=== PATIENT | male | born 1955 | race Caucasian/White ===

== ENCOUNTER → 2016-10-31 | Outpatient (CLI) | payer BC ==
--- NOTE | 2016-10-31 22:45 | PN ---
This is a 60-year-old male patient coming in for old follow-up regarding his obstructive sleep apnea. This is his yearly check. The patient is doing well. He has no specific complaints. He is using his CPAP every night without any interruption. He has his CPAP unit which is set at a pressure of 11 cm of water with a C-Flex of 3 and he is using a full face Simplus mask, medium size. His weight has been fluctuating and he his weight is up to 273 pounds. He has gained approximately 20 pounds over the past 6 to 9 months. He is averaging 7 hours and 30 minutes on his CPAP use every night. No snoring on CPAP machine. He is waking up refreshed and alert during the day and he has no specific complaints for now. BP is 147/70, pulse 59, respirations 16, temperature 98.1, saturation 95% on room air, weight 273. BMI is 42 and Marion score is 6. GENERAL APPEARANCE: Calm, comfortable. HEENT: Short neck, crowding posterior pharynx. There is no goiter, neck masses. LUNGS: Clear to auscultation. HEART: Sounds are regular rate and rhythm. Normal S1, S2. No S3, no S4 no murmurs. ABDOMEN: Soft, nontender. No organomegaly. EXTREMITIES: No edema, clubbing. IMPRESSION: 1. Obstructive sleep apnea, currently on CPAP at a pressure with excellent clinical response and compliance. 2. Obesity with interval weight gain and body mass index is up to 42.1. 3. Hypertension. PLAN: 1. Encourage weight loss. 2. Continue CPAP therapy at the same level of pressure. 3. Patient is compliant. He is averaging more than 7 hours of CPAP use every night and he is waking up alert and refreshed during the day. 4. Implement good sleep hygiene measures. 5. We will continue to follow. 6. See me back in a year's time; earlier if needed.
== END | disposition home or self-care (01) ==
LOC: SLEEP 14:58
PROVIDERS: ATTEND Internal Medicine Critical Care Medicine
DX: G47.33 Obstructive sleep apnea (adult) (pediatric) (principal); E66.9 Obesity, unspecified; Z68.41 Body mass index [BMI] 40.0-44.9, adult

== ENCOUNTER → 2017-11-13 | Outpatient (CLI) | payer BC ==
--- NOTE | 2017-11-13 20:49 | PN ---
PROGRESS NOTE I am seeing this patient who is 61, and he is coming in for an annual check regarding his obstructive sleep apnea treatment. The patient with a pressure of 11 cm of water. He is doing well. He is benefitting from treatment. Garner score is down to 5. He is averaging around 7 hours and 23 minutes of CPAP use per night. The patient insisted updating his CPAP machine. The patient has an older generation REM Star [employer] unit. This machine is set at a pressure of 11 cm of water. His treatment has been successful and he wants to keep the same pressure setting. He was also using a Simplus full face mask. I introduced the AirFit F20 full face mask which he liked and favored. He has no other complaints otherwise for now. His body weight is at 270 which is 3 pounds less compared to his last evaluation approximately a year ago. REVIEW OF SYSTEMS: 12-point review of system was done. Positive findings are mentioned in history of present illness. His CPAP treatment has been crucial as the patient reports marked sleep improvement in sleep quality while on CPAP therapy. No reports snoring while on CPAP therapy. No reported heartburn or shortness of breath or any other chest pain or gasping for air at night. PHYSICAL EXAMINATION: BP is 137/69, pulse 68, respirations 16, temp 97.9. Saturation 95% on room air. Weight is 270, height is 5 feet 7 inches and BMI 42.2. GENERAL APPEARANCE: Calm and comfortable in no distress. Head is atraumatic, normocephalic. NECK: Supple. There is no JVD. No goiter or neck masses. Mallampati class IV. LUNGS: Clear to auscultation. HEART: Sounds are regular rate and rhythm. Normal S1, S2. No S3, S4. No murmurs. ABDOMEN: Soft, nontender. No organomegaly. EXTREMITIES: No edema. No cyanosis or clubbing. NEUROLOGIC: Alert and oriented x3. No focal neurological deficits. PSYCHIATRIC: Negative for anxiety or depression. IMPRESSION: 1. Obstructive sleep apnea. Successfully treated with a CPAP pressure of 11 cm of water. The patient wants to update his CPAP unit and mask. 2. Obesity, current weight is stable, BMI 42. 3. Hypertension. PLAN: 1. We will order a ResMed AutoSet APAP unit with minimal pressure of 7 and a maximum pressure of 15. 2. Will an AirFit F20 full face mask. 3. Send an order to [facility]. 4. See me back in 90 days for a compliancy check and further adjustments will be done accordingly. MMODL / IJN: [id number] /
== END | disposition home or self-care (01) ==
LOC: SLEEP 13:31
PROVIDERS: ATTEND Internal Medicine Critical Care Medicine
DX: G47.33 Obstructive sleep apnea (adult) (pediatric) (principal); E66.9 Obesity, unspecified; I10 Essential (primary) hypertension; Z99.89 Dependence on other enabling machines and devices; Z68.41 Body mass index [BMI] 40.0-44.9, adult

== ENCOUNTER → 2018-10-24 | Outpatient (CLI) | payer BC ==
--- NOTE | 2018-10-25 11:27 | ECHOF ---
Referral Reason:R06.09 Dyspnea with exertion MEASUREMENTS -------- HEIGHT: 167.6 cm WEIGHT: 129.3 kg BP: RVIDd: 2.9 cm (< 3.3) IVSd: 1.4 cm (0.6 - 1.1) LVIDd: 4.5 cm (3.9 - 5.3) LVPWd: 1.4 cm (0.6 - 1.1) IVSs: 1.8 cm LVIDs: 2.4 cm LVPWs: 1.7 cm LAESV Index (A-L): 31.59 ml/m Ao Diam: 3.0 cm (2.0 - 3.7) AV Cusp: 2.3 cm (1.5 - 2.6) LA Diam: 4.4 cm (2.7 - 3.8) EPSS: 0.5 cm MV E Darek: 0.57 m/s MV DecT: 307 ms MV A Darek: 0.77 m/s MV E/A Ratio: 0.74 RAP: 5.00 mmHg RVSP: 31.67 mmHg MV EF SLOPE: 100.42 mm/s (70 - 150) MV EXCURSION: 1.26 cm (> 18.000) FINDINGS -------- Sinus rhythm. This was a technically difficult study with suboptimal views. The left ventricular size is normal. There is moderate concentric left ventricular hypertrophy. O verall left ventricular systolic function is normal with, an EF between 60 - 65 %. The right ventricle is normal in size. The left atrium is mildly dilated. LA is midly dilated 29-33ml/m2. The right atrium is normal in size. 5 ml of Lumason was utilized for enhancement of images. Interatrial and interventricular septum intact. The aortic valve is trileaflet, and appears structurally normal. No aortic stenosis or regurgitation. There is trace mitral regurgitation. Mild tricuspid regurgitation present. Right ventricular systolic pressure is normal at < 35 mmHg. Trace/mild (physiologic) pulmonic regurgitation. The aortic root size is normal. IVC Not well visulized. There is no pericardial effusion. CONCLUSIONS -------- 1. Sinus rhythm. 2. This was a technically difficult study with suboptimal views. 3. The left ventricular size is normal. 4. There is moderate concentric left ventricular hypertrophy. 5. Overall left ventricular systolic function is normal with, an EF between 60 - 65 %. 6. The right ventricle is normal in size. 7. The left atrium is mildly dilated. 8. LA is midly dilated 29-33ml/m2. 9. The right atrium is normal in size. 10. 5 ml of Lumason was utilized for enhancement of images. 11. Interatrial and interventricular septum intact. 12. The aortic valve is trileaflet, and appears structurally normal. No aortic stenosis or regurgitat ion. 13. Mild tricuspid regurgitation present. 14. Right ventricular systolic pressure is normal at < 35 mmHg. 15. Trace/mild (physiologic) pulmonic regurgitation. 16. The aortic root size is normal. 17. IVC Not well visulized. 18. There is no pericardial effusion. KNOBBER: Valery Hernandez RDCS
--- NOTE | 2018-10-25 11:34 | P.STRESS ---
- Stress Test Note Stress Test Results/Findings: Exam Performed: stress test Exam Date: 10/24/18 Reason for Exam: DYSPNEA Height: 5 ft 6 in Weight: 127.006 kg Protocol: MARLINE Stage: 3 Duration of Exercise: 7:30 MINUTES Resting Heart Rate: 59 Resting Blood Pressure: 151/86 Maximum Achieved Heart Rate: 141 Maximum Achieved Blood Pressure: 210/63 85% PMHR: 134 100% PMHR: 158 METS: 9.1 Technologist Comment: Stress Test Results/Findings: Baseline heart rate 59 beats a minute Baseline blood pressure 151/86. His mercury Baseline twelve-lead ECG shows normal sinus rhythm normal cardiac intervals Patient exercised on a Marline protocol for 7 minutes 30 seconds achieving a peak heart rate of 141 beats a minute Hypertensive response to exercise No ECG evidence for ischemia occasional PVCs.
== END | disposition home or self-care (01) ==
LOC: RADNMMAIN 10:48
PROVIDERS: ATTEND Family Medicine
DX: I07.1 Rheumatic tricuspid insufficiency (principal); I37.1 Nonrheumatic pulmonary valve insufficiency; R06.09 Other forms of dyspnea
CPT/HCPCS: 93017; 93306; Q9950

== ENCOUNTER → 2019-05-20 | Outpatient (CLI) | payer BC ==
--- NOTE | 2019-05-20 14:44 | PN ---
PROGRESS NOTE Evelio is 63 coming in for an annual check. I totally updated his CPAP machine. However, the patient told me that it had been 5 years and the patient had to wait another year for him to get a new CPAP unit. During this time, the patient used his old degeneration respiratory unit which was set at a pressure of 11 cm of water and he was averaging around 7.5 hours. He was using a Simplus full-face mask, small size. He has no complaints, no snoring, unfortunately he has gained weight since he retired and he is up to 282 pounds. No snoring while using his CPAP unit, treatment has been successful and I do not see the need for repeating a sleep study. I am going to order a new CPAP unit for him. Otherwise, he has no new complaints. No major hypersomnia or sleepiness during the day. No tiredness or fatigue during the day. No chest pain. Overnight, no other new complaints. REVIEW OF SYSTEMS: A 14-point review of system was done. Positive findings as mentioned in history of present illness. Inlet score is 5. GENERAL APPEARANCE: Calm, comfortable. BP is 160/90, pulse 72, respirations 16, temperature 97.7 saturation 98% on room air. Height is 5 feet 7 inches, weight is 282. Inlet score is 5 BMI is 44.3 general appearance calm comfortable head is atraumatic, normocephalic. NECK: Supple. No JVD. No bruits. No neck mass. LUNGS: Clear to auscultation. HEART: Heart sounds are regular rate and rhythm. Normal S1, S2. No S3, S4. No murmurs. ABDOMEN: Soft, nontender. No organomegaly. EXTREMITIES: No edema. No cyanosis or clubbing. NEUROLOGIC: Alert and oriented x3. No focal neurological deficits. PSYCHIATRIC: Negative for anxiety or depression. IMPRESSION: 1. Obstructive sleep apnea. Awaiting to update his CPAP unit. The patient has been successfully treated with a CPAP pressure of 11 cm of water. 2. Obesity with interval weight gain. The weight is up to 282 with a body mass index of 44.3. 3. Hypersomnia while treated with CPAP therapy. 4. Hypertension. PLAN: 1. Ordered Res Met AutoSet unit at a pressure of 11 cm of water with C-flex of 3. 2. Renew the patient's CPAP mask which will be a Simplus small size full-face mask. 3. Heated tubing. 4. Supplies including filters, mask, and head gear. 5. See me back in 30 to 90 days for a compliancy check. MMODL / IJN: [id number] /
== END ==
LOC: SLEEP 13:47
PROVIDERS: ATTEND Internal Medicine Critical Care Medicine
DX: G47.33 Obstructive sleep apnea (adult) (pediatric) (principal); E66.9 Obesity, unspecified; I10 Essential (primary) hypertension; Z68.41 Body mass index [BMI] 40.0-44.9, adult; Z99.89 Dependence on other enabling machines and devices

== ENCOUNTER → 2019-08-28 | Outpatient (CLI) | payer BC ==
--- NOTE | 2019-08-28 21:04 | PN ---
PROGRESS NOTE DATE OF SERVICE: 08/28/2019 This patient is a 63-year-old gentleman who has been followed in [facility] Center for treatment of obstructive sleep apnea-hypopnea syndrome. Recently the patient received a new CPAP unit, and this is his first visit after he started to use it. The patient likes the new machine. He is using it every night without significant problems related to mask fitting, pressure or humidification. Pickford Sleepiness Scale today is 5, which is normal. I checked his CPAP unit. CPAP pressure is 11 cm of water. Patient is using it every night, 30/30 nights, for more than 4 hours, with average usage 7.4 hours per night, which is great compliance. Leak is 14 L/minute, which is acceptable for full-face mask. Apnea-hypopnea index is only 0.9, which is absolutely normal. PRESENT MEDICATIONS: Hydrochlorothiazide, losartan, fenofibrate, simvastatin, Synthroid, supplement, Bystolic. PHYSICAL EXAMINATION: GENERAL: A pleasant patient in no distress. VITAL SIGNS: BP 152/81, HR 63, RR 16, weight 283.4, temperature 98.1, oxygen saturation on room air 94%. HEENT: PERRLA, EOMI. Evaluation of oropharynx showed tongue protrudes midline. Low projection of soft palate. Mallampati III to IV. NECK: Supple, no JVD. Thyroid is not palpable. LUNGS: Clear to percussion and to auscultation. Good air exchange. No wheezing or rhonchi. HEART: S1, S2 regular. No murmurs, gallops, or rubs. ABDOMEN: Obese. EXTREMITIES: No clubbing or cyanosis. RETAIL SALES MERCHANDISER: Awake, alert, and oriented X3. Cranial nerves 2 to 7 intact. There is no fasciculation or atrophy. noted. No focal deficits observed. IMPRESSION: 1. Obstructive sleep apnea-hypopnea syndrome. Patient demonstrated 100% compliance with treatment, benefitting from treatment. 2. Obesity. 3. Hyperlipidemia. 4. Hypertension. 5. Hypothyroidism. PLAN: 1. Patient will continue to use CPAP equipment every night for the whole night. 2. Losing weight. 3. Sleep hygiene with regular time in bed for at least 7-1/2 to 8 hours. 4. No driving if feeling any sleepiness. 5. Will maintain on all necessary prescriptions for CPAP supplies, including presently full-face Simplus mask, heated tube, filters. Thank you very much for allowing me to participate in the management of your patient. Sincerely, Juan F Garnett MD, PhD, FAASM Diplomat of [employer] Field Worker of [facility] [place] NOEL / SUSAN: [id number] /
== END | disposition home or self-care (01) ==
LOC: SLEEP 14:34
PROVIDERS: ATTEND Internal Medicine
DX: G47.33 Obstructive sleep apnea (adult) (pediatric) (principal); E66.9 Obesity, unspecified; E78.5 Hyperlipidemia, unspecified; I10 Essential (primary) hypertension; E03.9 Hypothyroidism, unspecified; Z99.89 Dependence on other enabling machines and devices; Z79.890 Hormone replacement therapy; Z79.899 Other long term (current) drug therapy

== ENCOUNTER → 2020-09-01 | Outpatient (CLI) | payer BC ==
--- NOTE | 2020-09-01 11:28 | SFUN ---
SLEEP CENTER FOLLOW UP NOTE DATE OF SERVICE: 09/01/2020 This is a 64-year-old gentleman who has been followed in Sleep Center for treatment of obstructive sleep apnea-hypopnea syndrome. The patient continued to use his CPAP equipment every night for the whole night. For 2 nights when he started to use the CPAP equipment, machine did not start right away after he put the knob for start. Otherwise he feels okay with the fitting of the mask, pressure and humidification. Sublette Sleepiness Scale today is 7. I checked his CPAP unit. CPAP pressure of 11 cm of water. Usage is 30 out of 30 nights for more than 4 hours. Average 7.8 hours per night. Leak is 22 L/minute which is borderline. Apnea-hypopnea index is only 0.8, which is totally normal. MEDICATIONS: Synthroid 50 mcg once a day, Bystolic 5 mg once a day in the morning, losartan 10-12.5 mg once a day, fenofibrate 145 mg once a day. PHYSICAL EXAMINATION: GENERAL: Patient in no distress. VITAL SIGNS: BP 172/92, HR 63, RR 18, height 5 feet 8 inches, weight 287.0, BMI 43.4. Patient increase his weight on about of 4 pounds since previous visit. Oxygen saturation at room air 98%. HEENT: PERRLA, EOMI. Oropharynx low position of soft palate, Mallampati 3-4. NECK: Supple, no JVD. Thyroid is not palpable. LUNGS: Clear to percussion and to auscultation. Good air exchange. No wheezing or rhonchi. HEART: S1, S2 regular. No murmurs, gallops, or rubs. ABDOMEN: Obese. EXTREMITIES: No clubbing or cyanosis. HEARING AID REPAIRER: Awake, alert, and oriented X3. Cranial nerves 2 to 7 intact. There is no fasciculation or atrophy. noted. No focal deficits observed. IMPRESSION: 1. Obstructive sleep apnea-hypopnea syndrome. Patient demonstrated good compliance with treatment, benefitting from treatment several nights CPAP unit did not start to work after he pushed start button. 2. Obesity. 3. Hyperlipidemia. 4. Hypertension. 5. Hypothyroidism. PLAN: 1. Prescription to check if necessary to replace the CPAP unit. Prescription for all necessary supplies including Simplus small size full-face mask and heated tubing. 2. Patient will continue to use PAP equipment every night for the whole night. 3. Sleep hygiene with regular time in bed for at least 7-1/2 to 8 hours. 4. Precautions related to driving. No driving if feeling sleepiness. 5. I will maintain all necessary prescription for PAP supplies including mask, tube, filters. 6. Watching weight. 7. Follow-up visit in 6 months or earlier if patient has any problems. Thank you very much for allowing me to participate in management of your patient. Sincerely, Juan F Garnett MD, PhD, FAASM Diplomat of [employer] Eyewear Consultant of [facility] [place] MMODL / IJN: [id number] /
== END ==
LOC: SLEEP 10:17
PROVIDERS: ATTEND Internal Medicine
DX: G47.33 Obstructive sleep apnea (adult) (pediatric) (principal); E66.9 Obesity, unspecified; I10 Essential (primary) hypertension; E78.5 Hyperlipidemia, unspecified; E03.9 Hypothyroidism, unspecified

== ENCOUNTER 2021-02-06 10:19 | Emergency (ER) | payer BC, MEDICARE ==
[2021-02-06 10:25] VITALS: RESP 18; TEMP 98.4
[2021-02-06] MEDS ORDERED: MECLIZINE 25 MG TAB PO STA (10:38)
--- NOTE | 2021-02-06 11:05 | CT ---
EXAMINATION TYPE: CT brain wo con DATE OF EXAM: 02/06/2021 COMPARISON: None HISTORY: Lt sided facial tingling Unenhanced CT of the brain was performed. The ventricles, basal cisterns and sulci overlying the cerebral convexities demonstrate a normal appe arance. There is no evidence for intracranial hemorrhage or sulcal effacement. No mass effects are seen. Osseous calvarium is intact. If symptoms persist consider MRI as clinically warranted. IMPRESSION: 1. No acute intracranial process is seen at this time.
--- NOTE | 2021-02-06 11:12 | XR ---
EXAMINATION TYPE: XR chest 2V DATE OF EXAM: 02/06/2021 COMPARISON: 11/27/2012 HISTORY: Shortness of breath TECHNIQUE: Frontal and lateral views of the chest are obtained. FINDINGS: Scattered senescent parenchymal changes noted. Hyperinflation compatible with COPD. No evidence for infiltrate. No evidence for atelectasis. Heart size is stable. Mediastinal structures are stable and grossly unremarkable. No evidence for hilar prominence. Degenerative changes dorsal spine. IMPRESSION: 1. No evidence for acute pulmonary disease.
--- NOTE | 2021-02-06 11:28 | ED ---
General Adult HPI - General Chief complaint: Neuro Symptoms/Deficit Stated complaint: Dizziness, L Sided Facial Numbness Time Seen by Provider: 02/06/21 10:20 Source: patient, RN notes reviewed, old records reviewed Mode of arrival: ambulatory Limitations: no limitations - History of Present Illness Initial comments: This is a 65-year-old male who presents emergency Department stating 3 days we bent over to put her shoes on and he stood up and he was very dizzy. Patient states she does have a history of vertigo does seem very similar. Patient stat es the symptoms come and gone ever since and today at uatsdin she became very dizzy again he felt a little tingly sensation in his scalp and face in the infraorbital region on the left however he says he is sensation is normal. Patient denies any focal weakness. Patient denies any chest pain patient denies any difficulty breathing shortest breath per patient states earlier today he had a headache that lasted only a hour and now it is completely resolved. Patient denies any recent fever chills or cough. Patient denies any vomiting or diarrhea or nausea - Related Data Home Medications Medication Instructions Recorded Confirmed Fenofibrate Nanocrystallized 145 mg PO HS 10/01/14 02/06/21 [Fenofibrate] Losartan/Hydrochlorothiazide 1 tab PO DAILY 10/01/14 02/06/21 [Losartan-Hctz 100-12.5 mg Tab] Nebivolol HCl [Bystolic] 5 mg PO DAILY 10/01/14 02/06/21 Simvastatin [Zocor] 40 mg PO DAILY 10/01/14 02/06/21 Levothyroxine Sodium [Synthroid] 50 mcg PO DAILY 02/06/21 02/06/21 Previous Rx's Medication Instructions Recorded Meclizine [Antivert] 25 mg PO TID #20 tab 02/06/21 Allergies Allergy/AdvReac Type Severity Reaction Status Date / Time No Known Allergies Allergy Verified 02/06/21 13:36 Review of Systems ROS Statement: Those systems with pertinent positive or pertinent negative responses have been documented in the HPI. ROS Other: All systems not noted in ROS Statement are negative. Past Medical History Past Medical History: Hyperlipidemia, Hypertension, Sleep Apnea/CPAP/BIPAP Additional Past Medical History / Comment(s): kidney stones, diverticulosis History of Any Multi-Drug Resistant Organisms: None Reported Past Surgical History: Appendectomy, Bowel Resection, Cholecystectomy, Hernia Repair, Orthopedic Surgery Additional Past Surgical History / Comment(s): lithotripsy, colostomy/later reversal, curt great toe surgery, curt knee arthroscopy Past Anesthesia/Blood Transfusion Reactions: No Reported Reaction Past Psychological History: No Psychological Hx Reported Past Alcohol Use History: Occasional Past Drug Use History: None Reported - Past Family History Father Family Medical History: Cancer Additional Family Medical History / Comment(s): prostate General Exam - General Exam Comments Initial Comments: GENERAL: Patient is well-developed and well-nourished. Patient is nontoxic and well- hydrated and is in mild distress. Patient's symptoms worsened with head movement. ENT: Neck is soft and supple. No significant lymphadenopathy is noted. Oropharynx is clear. Moist mucous membranes. Neck has full range of motion without eliciting any pain. EYES: The sclera were anicteric and conjunctiva were pink and moist. Extraocular movements were intact and pupils were equal round and reactive to light. Eyelids were unremarkable. PULMONARY: Unlabored respirations. Good breath sounds bilaterally. No audible rales rhonchi or wheezing was noted. CARDIOVASCULAR: There is a regular rate and rhythm without any murmurs gallops or rubs. ABDOMEN: Soft and nontender with normal bowel sounds. SKIN: Skin is clear with no lesions or rashes and otherwise unremarkable. NEUROLOGIC: Patient is alert and oriented x3. Cranial nerves II through XII are grossly intact. Motor and sensory are also intact. Normal speech, volume and content. Symmetrical smile. Patient's finger to nose testing is normal bilaterally MUSCULOSKELETAL: Normal extremities with adequate strength and full range of motion. LYMPHATICS: No significant lymphadenopathy is noted PSYCHIATRIC: Normal psychiatric evaluation. Limitations: no limitations Course Vital Signs 02/06/21 10:21 Temperature 98.4 F Pulse Rate 68 Respiratory 18 Rate Blood Pressure 180/81 O2 Sat by Pulse 97 Oximetry Medical Decision Making - Medical Decision Making EKG shows sinus bradycardia [address] interval is 170 QRS is 96 QT interval 432 QTC is 420. Patient's EKG shows no ST segment elevation or depression. No prior CT of the brain shows no acute abnormality. Patient got Antivert and he states his symptoms are much improved. - Lab Data Result diagrams: 02/06/21 12:52 02/06/21 12:52 Lab Results 02/06/21 02/06/21 02/06/21 Range/Units 12:52 12:52 12:52 WBC 8.3 (3.8-10.6) k/uL RBC 4.91 (4.30-5.90) m/uL Hgb 15.5 (13.0-17.5) gm/dL Hct 46.7 (39.0-53.0) % MCV 95.1 (80.0-100.0) fL MCH 31.6 (25.0-35.0) pg MCHC 33.2 (31.0-37.0) g/dL RDW 12.9 (11.5-15.5) % Plt Count 256 (150-450) k/uL MPV 8.2 Neutrophils % 69 % Lymphocytes % 20 % Monocytes % 4 % Eosinophils % 3 % Basophils % 1 % Neutrophils # 5.7 (1.3-7.7) k/uL Lymphocytes # 1.7 (1.0-4.8) k/uL Monocytes # 0.3 (0-1.0) k/uL Eosinophils # 0.3 (0-0.7) k/uL Basophils # 0.1 (0-0.2) k/uL PT 10.9 (9.0-12.0) sec INR 1.0 (<1.2) APTT 23.0 (22.0-30.0) sec Sodium 140 (137-145) mmol/L Potassium 3.8 (3.5-5.1) mmol/L Chloride 104 (98-107) mmol/L Carbon Dioxide 26 (22-30) mmol/L Anion Gap 10 mmol/L BUN 12 (9-20) mg/dL Creatinine 0.83 (0.66-1.25) mg/dL Est GFR (CKD-EPI)AfAm >90 (>60 ml/min/1.73 sqM) Est GFR (CKD-EPI)NonAf >90 (>60 ml/min/1.73 sqM) Glucose 125 H (74-99) mg/dL Calcium 9.8 (8.4-10.2) mg/dL Magnesium 1.8 (1.6-2.3) mg/dL Total Bilirubin 0.5 (0.2-1.3) mg/dL AST 89 H (17-59) U/L ALT 95 H (4-49) U/L Alkaline Phosphatase 60 (38-126) U/L Troponin I (0.000-0.034) ng/mL Total Protein 6.9 (6.3-8.2) g/dL Albumin 4.4 (3.5-5.0) g/dL 02/06/21 Range/Units 12:52 WBC (3.8-10.6) k/uL RBC (4.30-5.90) m/uL Hgb (13.0-17.5) gm/dL Hct (39.0-53.0) % MCV (80.0-100.0) fL MCH (25.0-35.0) pg MCHC (31.0-37.0) g/dL RDW (11.5-15.5) % Plt Count (150-450) k/uL MPV Neutrophils % % Lymphocytes % % Monocytes % % Eosinophils % % Basophils % % Neutrophils # (1.3-7.7) k/uL Lymphocytes # (1.0-4.8) k/uL Monocytes # (0-1.0) k/uL Eosinophils # (0-0.7) k/uL Basophils # (0-0.2) k/uL PT (9.0-12.0) sec INR (<1.2) APTT (22.0-30.0) sec Sodium (137-145) mmol/L Potassium (3.5-5.1) mmol/L Chloride (98-107) mmol/L Carbon Dioxide (22-30) mmol/L Anion Gap mmol/L BUN (9-20) mg/dL Creatinine (0.66-1.25) mg/dL Est GFR (CKD-EPI)AfAm (>60 ml/min/1.73 sqM) Est GFR (CKD-EPI)NonAf (>60 ml/min/1.73 sqM) Glucose (74-99) mg/dL Calcium (8.4-10.2) mg/dL Magnesium (1.6-2.3) mg/dL Total Bilirubin (0.2-1.3) mg/dL AST (17-59) U/L ALT (4-49) U/L Alkaline Phosphatase (38-126) U/L Troponin I <0.012 (0.000-0.034) ng/mL Total Protein (6.3-8.2) g/dL Albumin (3.5-5.0) g/dL Disposition Clinical Impression: Vertigo Disposition: HOME SELF-CARE Condition: Good Instructions (If sedation given, give patient instructions): Vertigo (ED) Prescriptions: Meclizine [Antivert] 25 mg PO TID #20 tab Is patient prescribed a controlled substance at d/c from ED?: No Referrals: Daniel Billy DO [Primary Care Provider] - 1-2 days Time of Disposition: 14:00
[2021-02-06 13:02] LABS: Basophils # (A) 0.1 k/uL (0-0.2); Basophils % (A) 1 %; Eosinophils # (A) 0.3 k/uL (0-0.7); Eosinophils % (A) 3 %; HCT 46.7 % (39.0-53.0); HGB 15.5 gm/dL (13.0-17.5); Lymphocytes # (A) 1.7 k/uL (1.0-4.8); Lymphocytes % (A) 20 %; MCH 31.6 pg (25.0-35.0); MCHC 33.2 g/dL (31.0-37.0); MCV 95.1 fL (80.0-100.0); Mean Platelet Volume 8.2; Monocytes # (A) 0.3 k/uL (0-1.0); Monocytes % (A) 4 %; Neutrophils # (A) 5.7 k/uL (1.3-7.7); Neutrophils % (A) 69 %; Platelet Count 256 k/uL (150-450); RBC 4.91 m/uL (4.30-5.90); RDW 12.9 % (11.5-15.5); WBC 8.3 k/uL (3.8-10.6)
[2021-02-06 13:11] LABS: ALT 95 U/L (4-49); AST 89 U/L (17-59); African American GFR (CKD) >90 (>60 ml/min/1.73 sqM); Albumin 4.4 g/dL (3.5-5.0); Alkaline Phosphatase 60 U/L (38-126); Anion Gap 10 mmol/L; Blood Urea Nitrogen 12 mg/dL (9-20); Calcium 9.8 mg/dL (8.4-10.2); Carbon Dioxide 26 mmol/L (22-30); Chloride 104 mmol/L (98-107); Glucose 125 mg/dL (74-99); Magnesium 1.8 mg/dL (1.6-2.3); Non-African American GFR(CKD) >90 (>60 ml/min/1.73 sqM); Potassium 3.8 mmol/L (3.5-5.1); Sodium 140 mmol/L (137-145); Total Bilirubin 0.5 mg/dL (0.2-1.3); Total Protein 6.9 g/dL (6.3-8.2)
[2021-02-06 13:15] LABS: Prothrombin Time 10.9 sec (9.0-12.0)
[2021-02-06 14:12] VITALS: BP 170/80; PULSE 70
== END 2021-02-06 14:12 | disposition home or self-care (01) ==
LOC: EC 10:19
DX: R42 Dizziness and giddiness (principal); R20.0 Anesthesia of skin; I10 Essential (primary) hypertension; E78.5 Hyperlipidemia, unspecified; G47.30 Sleep apnea, unspecified
CPT/HCPCS: 36415; 70450; 71046; 80053; 83735; 84484; 85025; 85610; 85730; 93005; 99284

== ENCOUNTER → 2021-03-30 | Outpatient (CLI) | payer MEDICARE, BC ==
--- NOTE | 2021-03-31 16:19 | MR ---
EXAMINATION TYPE: MR knee LT wo con DATE OF EXAM: 03/30/2021 COMPARISON: Left knee 03/15/2021 from outside institution HISTORY: Left knee pain TECHNIQUE: Multiplanar, multisequence imaging of the left knee is performed without IV contrast. FINDINGS: MEDIAL MENISCUS: The posterior horn of the meniscus is markedly attenuated, there is abnormal increas ed intrinsic signal noted, pseudoextrusion, the body shows an irregular appearance, coronal image 23, on coronal image 26 there is some linear increased signal extends vertically LATERAL MENISCUS: Some linear increased signal is present within the meniscus, no clear extension to the articular surface however CRUCIATE LIGAMENTS: Fibers of the anterior cruciate ligament show a heterogeneous appearance, increas ed signal possibly due to some degenerative fraying or partial tear, posterior cruciate ligament is i ntact, somewhat thickened, there is some increased intrinsic signal within the ligament suggesting st rain or partial tear, possible mucoid degeneration COLLATERAL LIGAMENTS: The medial collateral ligament and lateral collateral ligament complex are inta ct and unremarkable. EXTENSOR MECHANISM: Visualized quadriceps and patellar tendons are intact. EFFUSION: Suprapatellar joint effusion is present POPLITEAL CYST: Semimembranosus gastrocnemius cyst is present measuring approximately 7 x 14 x 30 mm TRICOMPARTMENT SPACES: Joint space loss is present especially in the medial compartment, patellofemor al joint CARTILAGE: Grade 3 to grade IV chondromalacia present in the medial compartment, posterior patella BONE MARROW SIGNAL: Some probable reactive marrow signal changes along the proximal tibia medially, c ystic change present in the level of the proximal tibia at the intercondylar notch level, possible turner bchondral geode formation at posterior tibia proximally at the level of the medial compartment. OTHER: Subcutaneous edema changes present. IMPRESSION: Osteoarthritis. Probable degenerative tear of the posterior horn of the medial meniscus, findings in the cruciate ligaments as described, there is a joint effusion, subcutaneous edema as described.
== END | disposition home or self-care (01) ==
LOC: RADMRIMAIN 12:40
PROVIDERS: ATTEND Orthopaedic Surgery
DX: M17.12 Unilateral primary osteoarthritis, left knee (principal)

== ENCOUNTER → 2021-05-05 | Outpatient (CLI) | payer MEDICARE, BC ==
--- NOTE | 2021-05-06 09:19 | SFUN ---
SLEEP CENTER FOLLOW UP NOTE DATE OF SERVICE: 05/05/2021 This 65-year-old gentleman has been followed in Sleep Center for treatment of obstructive sleep apnea-hypopnea syndrome. The patient continues to use his CPAP equipment every night. No snoring with the machine. His [place] Sleepiness Scale today is 5, which is normal. I checked his CPAP unit. CPAP pressure is 11 cm of water. Usage 100% of nights more than 4 hours, average 7.3 hours per night. Leak is 20 L/minute, which is borderline. Apnea-hypopnea index is 1.2, which is normal range. MEDICATIONS: 1. Metformin 500 mg once a day. 2. Crestor 20 mg once a day. 3. Bystolic 10 mg once a day. 4. Antivert 25 mg as needed. 5. Hyzaar tablets 100/12.5 mg once a day. 6. Synthroid 50 mcg once a day. PHYSICAL EXAMINATION: GENERAL: Pleasant patient in no distress. VITAL SIGNS: BP 168/85, HR 63. RR 15, height 5 feet 8 inches, weight 262. Body mass index 41.4. Temperature 97.3. Oxygen saturation at room air 97%. HEENT: CAPRICERSANG, EOMI, evaluation of oropharynx showed tongue protrudes midline. Low position of soft palate; Mallampati III to IV. NECK: Supple, no JVD. Thyroid is not palpable. LUNGS: Clear to percussion and to auscultation. Good air exchange. No wheezing or rhonchi. HEART: S1, S2 regular. No murmurs, gallops, or rubs. ABDOMEN: Obese. EXTREMITIES: No clubbing or cyanosis. CONSULTING SERVICES PROJECT MANAGER: Awake, alert, and oriented X3. Cranial nerves 2 to 7 intact. There is no fasciculation or atrophy. noted. No focal deficits observed. IMPRESSION: 1. Obstructive sleep apnea-hypopnea syndrome. Patient demonstrated 100% compliance with treatment, benefitting from treatment. 2. Obesity. 3. Hyperlipidemia. 4. Hypertension. 5. Hypothyroidism. PLAN: 1. Patient will continue to use PAP equipment every night for the whole night. 2. Sleep hygiene with regular time in bed for at least 7-1/2 to 8 hours. 3. Precautions related to driving. No driving if feeling sleepiness. 4. I will maintain all necessary prescription for PAP supplies including mask, tube, filters. 5. Watching weight. 6. Follow-up visit in 6 months or earlier if patient has any problems. Thank you very much for allowing me to participate in the management of your patient. Sincerely, Juan F Garnett MD, PhD, FAASM Diplomat of [employer] Sleep Medicine Board of [employer] Stain Dipper of [facility] [place] MMMINI / SUSAN: [id number] /
== END ==
LOC: SLEEP 15:40
PROVIDERS: ATTEND Internal Medicine
DX: G47.33 Obstructive sleep apnea (adult) (pediatric) (principal); E66.9 Obesity, unspecified; E78.5 Hyperlipidemia, unspecified; I10 Essential (primary) hypertension; E03.9 Hypothyroidism, unspecified; Z68.41 Body mass index [BMI] 40.0-44.9, adult; Z79.890 Hormone replacement therapy

== ENCOUNTER 2021-05-19 11:23 | Day surgery (SDC) | payer MEDICARE, BC ==
[2021-05-16 16:00] VITALS: BMI 40.1
--- NOTE | 2021-05-18 20:35 | HP ---
HISTORY AND PHYSICAL DATE OF SURGERY: 05/19/2021 Evelio Bacon is a 65-year-old patient seen with progressive left knee pain. We discussed options for treatment. He elected to proceed with left knee arthroscopy. Consent was obtained. Medical clearance was provided by Dr. Daniel Billy. PAST MEDICAL HISTORY: Hypertension, hyperlipidemia, ckn-zdmmtqr-rxwszybor diabetes. PAST SURGICAL HISTORY: Bilateral knee arthroscopy, right shoulder arthroscopy, appendectomy, cholecystectomy. DAILY MEDICATIONS: Losartan, Aleve, Bystolic, Crestor, metformin. ALLERGIES: NONE. SOCIAL HISTORY: He denies tobacco use. PHYSICAL EVALUATION OF THE LEFT KNEE: His range of motion is negative 2/3 to 115 degrees. Mild effusion. Tenderness, medial joint line. Positive medial Pro's. Ligaments stable. Hip rotation without pain. Distal neurovascular exam intact. Radiographs of the left knee show moderate osteoarthritis. MRI of left knee shows medial meniscal tear, osteoarthritis and effusion. IMPRESSION: 1. Internal derangement of left knee with medial meniscal tear. 2. Hypertension. 3. Hyperlipidemia. 4. Ulk-vnmemzs-gnbynybym diabetes. PLAN: Left knee arthroscopy with partial meniscectomy and debridement. MMODL / IJN: [id number] /
[2021-05-19] MEDS ORDERED: LACTATED RINGERS 1,000 ML IV SCH (11:57)
[2021-05-19] MEDS ORDERED: LIDOCAINE 1% (10MG/ML) FOR IV START INTRADERMA PRN (11:57)
[2021-05-19] MEDS ORDERED: ONDANSETRON 4 MG/2 ML VIAL IVP ONE (11:57)
[2021-05-19 12:16] LABS: Glucose,Whole Blood 95 mg/dL (75-99)
[2021-05-19] MEDS ORDERED: LACTATED RINGERS 1,000 ML IV ONE (12:29)
[2021-05-19 12:50] LABS: Basophils # (A) 0.1 k/uL (0-0.2); Basophils % (A) 1 %; Eosinophils # (A) 0.2 k/uL (0-0.7); Eosinophils % (A) 3 %; HCT 43.1 % (39.0-53.0); HGB 14.7 gm/dL (13.0-17.5); Lymphocytes # (A) 1.5 k/uL (1.0-4.8); Lymphocytes % (A) 20 %; MCH 30.1 pg (25.0-35.0); MCV 88.7 fL (80.0-100.0); Mean Platelet Volume 8.6; Monocytes # (A) 0.5 k/uL (0-1.0); Monocytes % (A) 6 %; Neutrophils # (A) 5.3 k/uL (1.3-7.7); Neutrophils % (A) 68 %; Platelet Count 222 k/uL (150-450); RBC 4.86 m/uL (4.30-5.90); RDW 12.2 % (11.5-15.5); WBC 7.8 k/uL (3.8-10.6)
[2021-05-19] MEDS ORDERED: PROPOFOL 10 MG/ML 20 ML VIAL IV ONE (12:59)
[2021-05-19] MEDS ORDERED: .fentaNYL (PF) 50 MCG/ML AMP ONE (12:59)
[2021-05-19] MEDS ORDERED: LIDOCAINE 1% INJ 10MG/ML (20 ML MDV) ONE (12:59)
[2021-05-19] MEDS ORDERED: SUCCINYLCHOLINE CHLORIDE 100 MG/5 ML SYR IV ONE (12:59)
[2021-05-19] MEDS ORDERED: HYDROmorphone (PF) 1 MG/ML ONE (12:59)
[2021-05-19] MEDS ORDERED: MIDAZOLAM 2 MG/2 ML VIAL ONE (12:59)
[2021-05-19] MEDS ORDERED: BUPIVACAINE (PF) 0.25% 30 ML VIAL SQ ONE ×2 (13:17→13:33)
--- NOTE | 2021-05-19 13:47 | P.OP ---
Date of Procedure: 05/19/21 Preoperative Diagnosis: Internal derangement left knee Postoperative Diagnosis: 1. Tear medial meniscus left knee 2. 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 Reactive synovitis medial, lateral and suprapatellar compartments left knee Procedure(s) Performed: 1. Arthroscopic partial medial meniscectomy left knee 2. Arthroscopic chondroplasty medial tibial plateau left knee 3. Arthroscopic partial synovectomy medial, lateral and suprapatellar compartments left knee Anesthesia: MIKEYA, local Surgeon: Eris Marshall Estimated Blood Loss (ml): 7 Pathology: none sent Condition: stable Disposition: PACU Indications for Procedure: 65-year-old patient seen with progressive left knee pain. After treatment options were discussed, he elected to proceed with arthroscopy. Operative Findings: see description of procedure Description of Procedure: Patient was taken to the operative suite. Patient underwent a general anesthetic by the department of anesthesia. Patient was given preoperative antibiotics. The left lower extremity was placed in a well-padded arthroscopic leg linder. The left leg was prepped and draped in the normal sterile orthopedic fashion. A lateral parapatellar and suprapatellar incision was made. Trochars were inserted. Arthroscopy was initiated. Suprapatellar pouch revealed diffuse thick reactive synovitis. The patellofemoral joint appeared articulate congruently. There was grade 1/2 chondromalacia of the patella with osteochondraltearspresent. The scope was guided into the medial gutter. No loose bodies or plica were identified. The scope was then guided into the medial compartment. A medial parapatellar incision was made. Trocar inserted followed by probe. There was a complex tear involving the posterior horn of the medial meniscus. There were grade 4 chondromalacia changes of the medial tibial plateau with large osteochondral flap tears present. There were grade 4 chondromalacia changes of the medial femoral condyle with no tears present. There was thick reactive synovitis anteriorly. I performed a partial medial meniscectomy getting down to stable meniscal tissue. I performed a chondroplasty of the medial tibial plateau getting down to stable osteochondral tissue. I performed a partial synovectomy decompressing the thick reactive synovitis. The residual meniscus was probed and found to be stable. The residual osteochondral surface of the tibial plateau was stable again noting a very large area of exposed bone. There was good decompression of the reactive synovitis anteriorly. Scope and probe were then guided into the intercondylar notch. Cruciates were identified, probed and found to be stable. The scope and probe were then guided into lateral compartment. The lateral meniscus was probed and found to be stable. There were grade 1 chondromalacia changes lateral compartment with no osteochondral fractures present. There was some thick reactive synovitis anteriorly. I introduced a motorized shaver and performed a partial synovectomy. Shaver was removed. There was good decompression of the synovitis. The scope was in guided back into the suprapatellar compartment. I introduced a motorized shaver into the super patellar compartment. I debrided some piecemeal fragments of meniscus that I encountered. I performed a partial synovectomy. Shaver was removed. There was good decompression of the synovitis. I now took one more look around the entire knee, no residual debris. Instruments were now removed from the joint. The joint was infiltrated with .25% Marcaine. Steri-Strips were applied to the p ortal sites. Sterile dressings were applied. The patient was placed into a JOSE L hose. No tourniquet was utilized. The patient was awakened, transferred to a bed and taken to recovery stable satisfactory condition.
[2021-05-19 13:48] VITALS: TEMP 98.1
[2021-05-19] MEDS: HYDROmorphone 0.5 MG/0.5 ML SYRINGE IVP PRN ×2 (13:56→14:09)
[2021-05-19 14:01] LABS: Glucose,Whole Blood 85 mg/dL (75-99)
[2021-05-19 14:32] VITALS: RESP 20
[2021-05-19 15:11] VITALS: BP 156/84; PULSE 74
== END 2021-05-19 15:14 | disposition home or self-care (01) ==
LOC: OR 11:23
PROVIDERS: ATTEND Orthopaedic Surgery
DX: S83.242A Other tear of medial meniscus, current injury, left knee, initial encounter (principal); M94.262 Chondromalacia, left knee; M65.9 Synovitis and tenosynovitis, unspecified; I10 Essential (primary) hypertension; M19.90 Unspecified osteoarthritis, unspecified site; E78.5 Hyperlipidemia, unspecified; E07.9 Disorder of thyroid, unspecified; E11.9 Type 2 diabetes mellitus without complications; G47.33 Obstructive sleep apnea (adult) (pediatric); Z79.899 Other long term (current) drug therapy; Z79.84 Long term (current) use of oral hypoglycemic drugs; Z87.891 Personal history of nicotine dependence
CPT/HCPCS: 85025; 29881; 29876; J2250; J0690; J2405; J2001; J3010; J1170 ×2; J0330; J2704

== ENCOUNTER → 2021-07-25 | Outpatient (CLI) | payer MEDICARE, BC ==
[2021-07-25 19:07] LABS: Basophils # (A) 0.06 X 10*3/uL (0.00-0.10); Basophils % (A) 0.7 %; Eosinophils # (A) 0.25 X 10*3/uL (0.04-0.35); Eosinophils % (A) 3.1 %; HCT 46.5 % (39.6-50.0); HGB 14.6 g/dL (13.0-17.0); Immature Grans, Automated 0.2 %; Lymphocytes # (A) 2.15 X 10*3/uL (0.90-5.00); Lymphocytes % (A) 26.4 %; MCH 29.2 pg (27.0-32.0); MCHC 31.4 g/dL (32.0-37.0); Mean Platelet Volume 11.6 fL (9.5-12.2); Monocytes # (A) 0.63 X 10*3/uL (0.20-1.00); Monocytes % (A) 7.7 %; NRBC Per 100 WBC 0 /100 WBCS (0.0-0.0); Neutrophils # (A) 5.03 X 10*3/uL (1.80-7.70); Neutrophils % (A) 61.9 %; Platelet Count 220 X 10*3/uL (140-440); RDW 13.1 % (11.5-14.5); WBC 8.14 X 10*3/uL (4.50-10.00)
[2021-07-25 19:27] LABS: Carbon Dioxide 31.1 mmol/L (20.0-27.5); Potassium 4.3 mmol/L (3.5-5.5)
== END | disposition home or self-care (01) ==
LOC: LABPAT 12:42
PROVIDERS: ATTEND Orthopaedic Surgery
DX: Z01.812 Encounter for preprocedural laboratory examination (principal); M23.91 Unspecified internal derangement of right knee
CPT/HCPCS: 36415; 80051; 85025

== ENCOUNTER 2021-08-03 10:05 | Day surgery (SDC) | payer MEDICARE, BC ==
[2021-08-01 13:16] VITALS: BMI 39.1
--- NOTE | 2021-08-02 15:28 | HP ---
HISTORY AND PHYSICAL DATE OF SURGERY: 08/03/2021 Evelio Bacon is a 65-year-old gentleman seen with progressive right knee pain. We discussed options for treatment. He elected to proceed with right knee arthroscopy. Consent was obtained. PAST MEDICAL HISTORY: Hypertension, hyperlipidemia, gfv-kbmktrl-xnhcyjrde diabetes. PAST SURGICAL HISTORY: Shoulder and knee arthroscopy, cholecystectomy, appendectomy. DAILY MEDICATIONS: Losartan, Bystolic, Crestor, metformin. ALLERGIES: NONE REPORTED. SOCIAL HISTORY: He denies tobacco use. PHYSICAL EVALUATION OF THE RIGHT KNEE: Range of motion zero to 130. Mild effusion. Tenderness, medial joint line. Positive medial Pro's. Ligaments stable. Hip rotation without pain. His distal neurovascular exam is intact. Radiographs of the right knee revealed moderate osteoarthritic changes. IMPRESSION: 1. Internal derangement of right knee with medial meniscal tear. 2. Hypertension. 3. Aoj-vzbveey-klayybrwr diabetes. PLAN: Right knee arthroscopy with partial meniscectomy and debridement. MMODL / IJN: [id number] /
[~2021-08-03 10:05] MED LIST: ceFAZolin 3 GM in SODIUM CHLORIDE 0.9% 100 ML IVPB PRN
[2021-08-03] MEDS ORDERED: LACTATED RINGERS 1,000 ML IV ONE (10:24)
[2021-08-03 10:33] LABS: Glucose,Whole Blood 91 mg/dL (75-99)
[2021-08-03] MEDS ORDERED: ONDANSETRON 4 MG/2 ML VIAL ONE (10:34)
[2021-08-03] MEDS ORDERED: ONDANSETRON 4 MG/2 ML VIAL IVP ONE (10:35)
[2021-08-03] MEDS ORDERED: PROPOFOL 10 MG/ML 20 ML VIAL IV ONE (11:02)
[2021-08-03] MEDS ORDERED: SUCCINYLCHOLINE CHLORIDE 100 MG/5 ML SYR IV ONE (11:02)
[2021-08-03] MEDS ORDERED: MIDAZOLAM 2 MG/2 ML VIAL ONE (11:02)
[2021-08-03] MEDS ORDERED: fentaNYL (PF) 50 MCG/ML 2 ML AMP ONE (11:02)
[2021-08-03] MEDS ORDERED: LIDOCAINE 1% INJ 10MG/ML (20 ML MDV) ONE (11:02)
[2021-08-03] MEDS ORDERED: BUPIVACAINE (PF) 0.25% 30 ML VIAL INTRAARTIC ONE (11:08)
--- NOTE | 2021-08-03 11:48 | P.OP ---
Date of Procedure: 08/03/21 Preoperative Diagnosis: Internal derangement right knee Postoperative Diagnosis: 1. Tear medial and lateral meniscus right knee 2. Grade 3 chondral malacia medial femoral condyle right knee 3. Grade 4 chondromalacia medial tibial plateau right knee 4. Reactive synovitis medial, lateral and suprapatellar compartments right knee Procedure(s) Performed: 1. Arthroscopic partial medial and lateral meniscectomy right knee 2. Arthroscopic chondroplasty medial femoral condyle right knee 3. Arthroscopic partial synovectomy medial, lateral and suprapatellar compartments right knee Anesthesia: MIKEYA, local Surgeon: Eris Marshall Estimated Blood Loss (ml): 7 Pathology: none sent Condition: stable Disposition: PACU Indications for Procedure: 65-year-old patient seen with progressive right knee pain. After treatment options were discussed he elected to proceed with arthroscopy. Operative Findings: 1. 2. [] 3. [] 4. [] 5. [] Description of Procedure: Patient was taken to the operative suite. Patient underwent a general anesthetic by the department of anesthesia. Patient was given preoperative antibiotics. The right lower extremity was placed in a well-padded arthroscopic leg linder. The right leg was prepped and draped in the normal sterile orthopedic fashion. A lateral parapatellar and suprapatellar incision was made. Trochars were inserted. Arthroscopy was initiated. Suprapatellar pouch reve aled diffuse thick reactive synovitis. The patellofemoral joint appeared to articulate congruently. There with grade 2/3 chondromalacia patellofemoraltears present. The scope was guided into the medial gutter. No loose bodies or plica were identified The scope was then guided into the medial compartment. A medial parapatellar incision was made. Trocar inserted followed by probe. There was a complex tear posterior horn medial meniscus. There were grade 3 chondromalacia changes of the medial femoral condyle with some osteochondral flap tears. There were grade 4 chondromalacia changes of the medial tibial plateau with a very large area of exposed bone. There was thick reactive synovitis anteriorly. I performed a partial medial meniscectomy getting down to stable meniscal tissue. I performed a chondroplasty of the medial femoral condyle getting down to stable osteochondral tissue. I performed a partial synovectomy decompressing the thick reactive synovitis anteriorly. The residual meniscus appeared stable. There was good decompression of the synovitis. The residual osteochondral surface of the medial femoral condyle was stable. Scope and probe were then guided into the intercondylar notch. Cruciates were identified, probed and found to be stable. The scope and probe were then guided into lateral compartment. Lateral meniscus revealed some superficial fraying a nd tearing along the anterior horn and a radial tear posterior horn. There were some diffuse grade 1/2 chondromalacia changes but no tears. There was thick reactive synovitis anteriorly. I performed a partial lateral meniscectomy getting down to stable meniscal tissue. I performed a partial synovectomy. The shaver was now removed. The residual meniscus was stable. There was good decompression of the synovitis. The scope was in guided back into the suprapatellar compartment. I introduced a motorized shaver into the suprapatellar compartment. I debrided some piecemeal fragments of meniscus I encountered. I performed a partial synovectomy. The shaver was now removed. There was good decompression of the synovitis. I took one more look on the entire knee, no residual debris. Instruments were now removed from the joint. The joint was infiltrated with .25% Marcaine. Steri-Strips were applied to the portal sites. Sterile dressings were applied. The patient was placed into a JOSE L hose. No tourniquet was utilized. The patient was awakened, transferred to a bed and taken to recovery stable satisfactory condition.
[2021-08-03 11:56] VITALS: TEMP 97.7
[2021-08-03] MEDS ORDERED: HYDROmorphone 0.5 MG/0.5 ML SYRINGE IVP ONE ×2 (11:56→12:17)
[2021-08-03] MEDS ORDERED: KETOROLAC 15 MG/ML 1 ML VIAL IVP ONE (11:57)
[2021-08-03 12:59] VITALS: BP 140/80; PULSE 51; RESP 17
== END 2021-08-03 13:18 | disposition home or self-care (01) ==
LOC: OR 10:05
PROVIDERS: ATTEND Orthopaedic Surgery
DX: S83.271A Complex tear of lateral meniscus, current injury, right knee, initial encounter (principal); S83.231A Complex tear of medial meniscus, current injury, right knee, initial encounter; M94.261 Chondromalacia, right knee
CPT/HCPCS: 29880; 27443; 29875; J2250; J0690; J2405; J2001; J3010; J1885; J0330; J2704; J1170

== ENCOUNTER → 2021-11-16 | Outpatient (CLI) | payer MEDICARE ==
--- NOTE | 2021-11-16 18:49 | SFUN ---
SLEEP CENTER FOLLOW UP NOTE DATE OF SERVICE: 11/16/2021 This 65-year-old gentleman has been followed in Sleep Center for treatment of obstructive sleep apnea-hypopnea syndrome. The patient continues to use his CPAP equipment every night, getting his CPAP supplies on time. No snoring. [place] Sleepiness Scale is 6, which is in normal range. I checked his CPAP unit. Pressure is 11 cm of water. Usage is 30/30 nights for more than 4 hours, average 7.4 hours per night. Leak is 11 L/minute, which is in normal range. Apnea-hypopnea index is 0.8 per hour, which is absolutely perfect. MEDICATIONS: Losartan/hydrochlorothiazide 100/12.5 mg once a day, metformin 500 mg once a day, levothyroxine 50 mcg once a day, 10 mg once a day, rosuvastatin 20 mg once a day. PHYSICAL EXAMINATION: GENERAL: Pleasant patient in no distress. VITAL SIGNS: BP 182/95, HR 70, RR 16, height 5 feet 7-1/2 inches, weight 253 pounds, body mass index 39.1, temperature 97.6, oxygen saturation at room air 97%. HEENT: PERRLA, EOMI, evaluation of oropharynx showed tongue protrudes midline. Low position of soft palate; Mallampati III to IV. NECK: Supple, no JVD. Thyroid is not palpable. LUNGS: Clear to percussion and to auscultation. Good air exchange. No wheezing or rhonchi. HEART: S1, S2 regular. No murmurs, gallops, or rubs. ABDOMEN: Obese. EXTREMITIES: No clubbing or cyanosis. MANUFACTURING SHIFT SUPERVISOR: Awake, alert, and oriented X3. Cranial nerves 2 to 7 intact. There is no fasciculation or atrophy. noted. No focal deficits observed. IMPRESSION: 1. Obstructive sleep apnea-hypopnea syndrome. Patient demonstrated great compliance with treatment, benefitting from treatment. 2. Hypertension. 3. Hypothyroidism. 4. Obesity. 5. Hyperlipidemia. PLAN: 1. Patient will continue to use PAP equipment every night for the whole night. 2. Sleep hygiene with regular time in bed for at least 7-1/2 to 8 hours. 3. Precautions related to driving. No driving if feeling sleepiness. 4. I will maintain all necessary prescription for PAP supplies including mask, tube, filters. 5. Watching weight. 6. Follow-up visit in 6 months or earlier if patient has any problems. Thank you very much for allowing me to participate in the management of your patient. Sincerely, Juan F Garnett MD, PhD, FAASM Diplomat of [employer] Sleep Medicine Board of [employer] Towel Sewer [facility] [place] MMMINI / SUSAN: [id number] /
== END ==
LOC: SLEEP 09:52
PROVIDERS: ATTEND Internal Medicine
DX: G47.33 Obstructive sleep apnea (adult) (pediatric) (principal); I10 Essential (primary) hypertension; E03.9 Hypothyroidism, unspecified; E66.9 Obesity, unspecified; E78.5 Hyperlipidemia, unspecified; Z99.89 Dependence on other enabling machines and devices; Z79.890 Hormone replacement therapy; Z79.899 Other long term (current) drug therapy; Z68.39 Body mass index [BMI] 39.0-39.9, adult; Z87.891 Personal history of nicotine dependence

== ENCOUNTER → 2022-04-07 | Outpatient (CLI) | payer MEDICARE, BC ==
--- NOTE | 2022-04-07 14:59 | XR ---
EXAMINATION TYPE: XR [facility] DATE OF EXAM: 04/07/2022 2:38 PM INDICATION: Patient age:Male; 66 years old; Reason for study: N20.0 Calculus kidney; COMPARISON: 10/12/2015. TECHNIQUE: One radiographic view of the abdomen was obtained. FINDINGS: Nonspecific bowel gas pattern. No evidence of bowel obstruction. Multilevel disc degenerati on changes throughout the spine. Bilateral calcification densities are seen projecting over the kidne ys conglomerate area on the right measuring up to 3.0 cm and on the left measuring up to 1.7 cm IMPRESSION: 1. Nonspecific bowel gas pattern without radiographic evidence for acute process. 2. Bilateral renal calculi.
== END | disposition home or self-care (01) ==
LOC: RADXRMAIN 14:25
PROVIDERS: ATTEND Urology
DX: N20.0 Calculus of kidney (principal)
CPT/HCPCS: 74018

== ENCOUNTER → 2022-05-01 | Outpatient (CLI) | payer MEDICARE, BC ==
--- NOTE | 2022-05-01 21:54 | CT ---
EXAMINATION TYPE: CT abdomen pelvis wo con DATE OF EXAM: 05/01/2022 HISTORY: Flank pain, hx of kidney stones CT DLP: 2116.2 mGycm. Automated Exposure Control for Dose Reduction was Utilized. TECHNIQUE: CT scan of the abdomen and pelvis is performed without oral or IV contrast. COMPARISON: KUB x-ray April 07, 2022 FINDINGS: Within the limitations of a non-contrast study, the following observations are made. LUNG BASES: Mild linear scarring in the right middle lobe. Mild linear scarring in the left lower lob e. LIVER/GB: Cholecystectomy clips are identified. PANCREAS: Mild generalized fat replaced atrophy. SPLEEN: No significant abnormality is seen. ADRENALS: No significant abnormality is seen. KIDNEYS: No confirmation of bilateral nephrolithiasis with approximately 5 left-sided renal calculi i ncluding a 12 mm calculus centrally mid to lower pole level axial image 75 along with central 12 mm l eft pelvic renal calculus axial image 70. There are approximately 6 right renal calculi including central a 16 mm calculus coronal image 67 wit h moderate calyceal dilatation on the right. Ybyg-el-xductpha left-sided calyceal dilatation is prese nt. No hydroureter is seen. Prominent right-sided pelvic phlebolith axial image 144. No intraluminal calculi in the bladder. BOWEL: Sigmoid colonic diverticulosis. Left-sided diverticula. No suspicious small or large bowel dil atation. GENITAL ORGANS: No gross abnormality seen. LYMPH NODES: No greater than 1cm abdominal or pelvic lymph nodes are appreciated. OSSEOUS STRUCTURES: Moderate disc space narrowing lumbosacral junction. Posterior spur disc complex e ffacing the anterior thecal sac at L1-L2 level. OTHER: Vertical oriented scar in the anterior abdominal wall. IMPRESSION: Bilateral nephrolithiasis including bilateral prominent renal pelvic stones causing moder ate bilateral calyceal dilatation.
== END | disposition home or self-care (01) ==
LOC: RADCTMAIN 17:44
PROVIDERS: ATTEND Urology
DX: N20.0 Calculus of kidney (principal); N28.89 Other specified disorders of kidney and ureter
CPT/HCPCS: 74176

== ENCOUNTER → 2022-05-18 | Outpatient (CLI) | payer MEDICARE, BC ==
--- NOTE | 2022-05-18 11:06 | P.PN ---
Subjective DATE: 05/18/2022 FOLLOW UP VISIT. Patient with obstructive sleep apnea hypopnea syndrome return to sleep center for follow-up visit. Information from previous visit have been reviewed. Patient is using PAP equipment every night for the whole night, getting PAP supplies in time. The patient does not have significant problems with the mask, PAP unit and humidification. [place] sleepiness scale is 6, which is normal. I checked information from PAP unit. PAP unit pressure 11 cm H2O. Usage is 100 % for more then 4 hours, average 7.2 hours per night. Leak is 10 l/m, which is in acceptable range. Apnea Hypopnea Index is 1.2, which is normal. MEDICATIONS:1. Levothyroxine/hydrochlorothiazide 100 mg-12.5 mg 2. Metformin 500 mg once a day 3. Levothyroxine 50 g once a day 4. Nebivolol 10 mg once a day 5. Rosuvastatin 20 mg once a day During physical exam: GENERAL: A pleasant patient without any distress. VITAL SIGNS: BP 186/103, HR 63, RR 16 , weight 268.4, temperature 97.4, oxygen saturation at room air 98 % . HEENT: PERRLA, EOMI.low position of soft palate, Mallapati 3-4 . NECK: Supple. No JVD. LUNGS: Clear to percussion and to auscultation. Good air exchange. No wheezing or rhonchi. HEART: S1, S2 regular. ABDOMEN: Soft and nontender. Obese EXTREMITIES: No clubbing or cyanosis. INSTRUCTIONAL MANAGER: Awake, alert, and oriented x3. No focal deficit. Impressions: 1. Obstructive sleep apnea-hypopnea syndrome. Patient demonstrated great compliance with treatment, benefiting from treatment. 2. History of multiple kidney stones. At the present time preparing for another surgical treatment for kidney stones. 3. Hypertension. 4. Hypothyroidism. 5. Obesity. 6. Hyperlipidemia. Plan: 1. Continue using PAP equipment every night for the whole night. 2. To change air filter at least 1-2 times per month. 3. PAP unit should stay lower then position of the head. 4. Advised patient to remove all remaining water from humidifier canister daily and make it dry after each usage. Refill canister with fresh distilled water before each usage. 5. Sleep hygiene with regular time in bed for at least 8 hours. 6. Precautions related to driving. No driving if feel any sleepiness. 7. I will maintain prescription for PAP supplies including mask, tube, filters. 8. Follow up visit in 6 months or earlier if patient has any problems. 9. Watching and losing weight. 10. Consider to increase the dose of hydrochlorothiazide. Medication may decrease concentration of calcium in the urine and may possibly decrease risk for kidney stones. Thank you very much for allowing me to participate in the management of your patient. Juan F Garnett MD, PhD, FAASM. Diplomat of [place] [employer], Sleep Medicine Board by [place] [employer] Stacker And Sorter Operator [facility] [place]
== END ==
LOC: SLEEP 09:48
PROVIDERS: ATTEND Internal Medicine
DX: G47.33 Obstructive sleep apnea (adult) (pediatric) (principal); Z99.89 Dependence on other enabling machines and devices; I10 Essential (primary) hypertension; E03.9 Hypothyroidism, unspecified; E66.9 Obesity, unspecified; E78.5 Hyperlipidemia, unspecified; Z87.442 Personal history of urinary calculi; Z87.891 Personal history of nicotine dependence
CPT/HCPCS: 99212

== ENCOUNTER → 2022-06-05 | Outpatient (CLI) | payer MEDICARE, BC ==
[2022-06-05 14:32] LABS: Basophils # (A) 0.05 X 10*3/uL (0.00-0.10); Basophils % (A) 0.7 %; Eosinophils # (A) 0.24 X 10*3/uL (0.04-0.35); Eosinophils % (A) 3.4 %; HCT 47.2 % (39.6-50.0); HGB 15.1 g/dL (13.0-17.0); Immature Grans, Automated 0.7 %; Lymphocytes % (A) 26.6 %; MCV 93.8 fL (80.0-97.0); Mean Platelet Volume 11.4 fL (9.5-12.2); Monocytes # (A) 0.56 X 10*3/uL (0.20-1.00); Monocytes % (A) 7.8 %; NRBC Per 100 WBC 0 /100 WBCS (0.0-0.0); Neutrophils # (A) 4.35 X 10*3/uL (1.80-7.70); Neutrophils % (A) 60.8 %; Platelet Count 228 X 10*3/uL (140-440); RBC 5.03 X 10*6/uL (4.40-5.60); RDW 13.2 % (11.5-14.5); WBC 7.15 X 10*3/uL (4.50-10.00)
[2022-06-05 14:39] LABS: Albumin 4.3 g/dL (3.8-4.9); Albumin/Globulin Ratio 1.72 (1.60-3.17); Anion Gap 9.6 mmol/L (10.00-18.00); BUN/Creat Ratio 15.43 Ratio (12.00-20.00); Blood Urea Nitrogen 10.8 mg/dL (9.0-27.0); Calcium 9.4 mg/dL (8.7-10.3); Carbon Dioxide 27.4 mmol/L (20.0-27.5); Globulin 2.5 g/dL (1.6-3.3); Non-African American GFR(CKD) 98.3 (60.0-200.0); Potassium 3.9 mmol/L (3.5-5.5); Total Bilirubin 0.3 mg/dL (0.30-1.20); Total Protein 6.8 g/dL (6.2-8.2)
[2022-06-05 18:48] LABS: Appearance,Urine Clear (Clear); Bilirubin,Urine Negative (Negative); Blood,Urine Moderate (Negative); Color,Urine Yellow (Yellow); Ketones,Urine Negative (Negative); Nitrite,Urine Negative (Negative); Specific Gravity,Urine 1.013 (1.001-1.030); Urobilinogen,Urine 0.2 (0.2,1.0)
[2022-06-05 19:49] LABS: Bacteria,Urine None Seen /HPF (None Seen)
== END | disposition home or self-care (01) ==
LOC: LABPAT 10:06
PROVIDERS: ATTEND Urology
DX: Z01.812 Encounter for preprocedural laboratory examination (principal); N40.1 Benign prostatic hyperplasia with lower urinary tract symptoms; N20.9 Urinary calculus, unspecified; R31.29 Other microscopic hematuria
CPT/HCPCS: 36415; 80053; 81001; 85025; 87086

== ENCOUNTER 2022-06-13 09:45 | Day surgery (SDC) | payer MEDICARE, BC ==
[2022-06-08 15:56] VITALS: BMI 42.7
--- NOTE | 2022-06-12 17:31 | P.GSHP ---
History of Present Illness H&P Date: 06/12/22 66 yo male with a history of stones, hematuria and flank pain was identified with bilateral partial staghorn calculi. Both are greater than 2 cm. the right is actually greater than 3 cm with calyceal obstruction. He thus comes for a right pcnl. The risks, complications and alternatives have been discussed including failure to access, injury to adjacent organs, bleeding, injury to kidney among others. He comes for this procedure. - Constitutional Constitutional: Denies chills, Denies fever - EENT Eyes: denies blurred vision, denies pain Ears, nose, mouth and throat: Denies headache, Denies sore throat - Cardiovascular Cardiovascular: Denies chest pain, Denies shortness of breath - Respiratory Respiratory: Denies cough, Denies 7 - Gastrointestinal Gastrointestinal: Denies abdominal pain, Denies diarrhea, Denies nausea, Denies vomiting - Genitourinary (Female) Genitourinary: Denies dysuria, Denies hematuria - Genitourinary (Male) Genitourinary: Denies dysuria, Denies hematuria - Musculoskeletal Musculoskeletal: Denies myalgias - Integumentary Integumentary: Denies pruritus, Denies rash - Neurological Neurological: Denies numbness, Denies weakness - Psychiatric Psychiatric: Denies anxiety, Denies depression - Endocrine Endocrine: Denies fatigue, Denies weight change Past Medical History Past Medical History: Diabetes Mellitus, Hyperlipidemia, Hypertension, Sleep Apnea/CPAP/BIPAP Additional Past Medical History / Comment(s): kidney stones, diverticulosis/diverticulitis,uses cpap History of Any Multi-Drug Resistant Organisms: None Reported Past Surgical History: Appendectomy, Bowel Resection, Cholecystectomy, Hernia Repair, Orthopedic Surgery Additional Past Surgical History / Comment(s): lithotripsy, colostomy/later reversal, curt great toe surgery, curt knee arthroscopy,incisional hernia repair Past Anesthesia/Blood Transfusion Reactions: No Reported Reaction Additional Past Anesthesia/Blood Transfusion Reaction / Comment(s): no hx blood transfusion Smoking Status: Former smoker - Past Family History Father Family Medical History: Cancer Additional Family Medical History / Comment(s): Prostate Cancer. Medications and Allergies Home Medications Medication Instructions Recorded Confirmed Type Levothyroxine Sodium [Euthyrox] 50 mcg PO QAM 05/16/21 06/08/22 History Losartan/Hydrochlorothiazide 1 tab PO QAM 05/16/21 06/08/22 History [Hyzaar 100-12.5 Tablet] Nebivolol HCl [Bystolic] 10 mg PO HS 05/16/21 06/08/22 History Rosuvastatin [Crestor] 20 mg PO HS 05/16/21 06/08/22 History metFORMIN HCL 500 mg PO QAM 05/16/21 06/08/22 History Acetaminophen Tab [Tylenol] 650 mg PO Q6H PRN 08/01/21 06/08/22 History Allergies Allergy/AdvReac Type Severity Reaction Status Date / Time No Known Allergies Allergy Verified 06/08/22 09:43 Surgical - Exam - General well developed, well nourished, no distress - Eyes normal ocular movement, no icteric - ENT no hearing loss, no congestion - Neck no masses, trachea midline - Respiratory normal respiratory effort, clear to auscultation - Abdomen Abdomen: soft, non tender, no guarding, no rigid, no rebound - Integumentary no rash, no abnormal pigmentation - Neurologic no disoriented, no combative - Psychiatric oriented to time, oriented to person, oriented to place, speech is normal, memory intact Results - Imaging Abdominal x-ray: report reviewed, image reviewed CT scan - abdomen: report reviewed, image reviewed CT scan - pelvis: report reviewed, image reviewed Assessment and Plan Assessment: Impression: right partial staghorn calculous, large with obstruction. DM, HTN Plan: right pcnl
[~2022-06-13 09:45] MED LIST changes: +HYDROmorphone 0.5 MG/0.5 ML SYRINGE IVP PRN; +LIDOCAINE 1% (10MG/ML) FOR IV START INTRADERMA PRN; -ceFAZolin 3 GM in SODIUM CHLORIDE 0.9% 100 ML IVPB PRN
--- NOTE | 2022-06-13 10:38 | XR ---
EXAMINATION TYPE: XR KUB DATE OF EXAM: 06/13/2022 Comparison: 04/07/2022 Clinical History: 66-year-old male kidney stones preoperative assessment. Findings: 2.3 cm calcification right mid abdomen. Multiple left-sided renal calculi, largest measuring 1.6 cm. Additional 1.3 cm calculus and smaller 5 mm calcifications are present on the left. Cholecystectomy c lips. Right-sided pelvic phlebolith. Nonobstructive bowel gas pattern. Mild to moderate severity. Impression: Bilateral renal calculi redemonstrated measuring up to 2.3 cm.
[2022-06-13 11:02] LABS: Glucose,Whole Blood 95 mg/dL (70-110)
[2022-06-13] MEDS: LACTATED RINGERS 1,000 ML IV SCH ×2 (11:15→11:22)
[2022-06-13] MEDS: DEXAMETHASONE SOD PHOSPHATE 4 MG/ML 1 ML VIAL IV ONE ×2 (11:15→11:21)
[2022-06-13] MEDS: ONDANSETRON 4 MG/2 ML VIAL IVP PRN ×2 (11:21→11:23)
[2022-06-13] MEDS ORDERED: ePHEDrine 50 MG/ML 1 ML VIAL ONE (11:39)
[2022-06-13] MEDS ORDERED: NEOSTIGMINE 1 MG/ML 10 ML VIAL ONE (11:39)
[2022-06-13] MEDS ORDERED: LIDOCAINE 2% INJ 20 MG/ML (2 ML VIAL) ONE (11:39)
[2022-06-13] MEDS ORDERED: ROCURONIUM 10 MG/ML (5 ML VIAL) IV ONE (11:39)
[2022-06-13] MEDS ORDERED: fentaNYL (PF) 50 MCG/ML 2 ML AMP ONE (11:39)
[2022-06-13] MEDS ORDERED: SUCCINYLCHOLINE CHLORIDE 200 MG/10 ML VIAL IV ONE (11:39)
[2022-06-13] MEDS ORDERED: PROPOFOL 10 MG/ML 20 ML VIAL IV ONE (11:39)
[2022-06-13] MEDS ORDERED: GLYCOPYRROLATE 0.2 MG/ML 2 ML VIAL ONE (11:39)
[2022-06-13] MEDS ORDERED: HYDROmorphone (PF) 1 MG/ML ONE (11:39)
[2022-06-13] MEDS ORDERED: MIDAZOLAM 2 MG/2 ML VIAL ONE (11:39)
[2022-06-13] MEDS ORDERED: IOPAMIDOL-370 50ML BTL MISCELLANE ONE (12:35)
[2022-06-13] MEDS ORDERED: LACTATED RINGERS 1,000 ML IV ONE (13:40)
--- NOTE | 2022-06-13 14:12 | P.OP ---
Date of Procedure: 06/13/22 Preoperative Diagnosis: Right renal stones, large Postoperative Diagnosis: Same Procedure(s) Performed: Cystoscopy, placement of occluding balloon catheter right, percutaneous nephrostomy tract placement( failed), placement of 6 x 26 double-J catheter Anesthesia: ABBY Surgeon: Supa Jackson Estimated Blood Loss (ml): 25 Pathology: none sent Condition: stable Disposition: PACU Indications for Procedure: The patient has a partially branch staghorn calculus occluding the right renal pelvis causing pain and obstruction. The stone is greater than 3 cm. He comes for percutaneous nephrostolithotomy right Description of Procedure: Patient is brought to the operating suite. He is given a general anesthesia on the transport gurney. He's placed in a frog position with a sterile prep and drape. Cystoscopy Foroblique lens and 21-[place] sheath identifies a mild urethral stricture dilated with the scope a high riding bladder neck. The right ureteral orifice is identified and intubated with a 5-[place] occluding balloon catheter passed up towards the UPJ. The patient is placed in prone position with care to airways and extremities. The collecting system is filled with air through the occluding balloon catheter. The posterior middle pole calyx was identified and with a deep the needle the needle intubate the middle pole calyx. Multiple attempts to pass a wire by the impacted UPJ stone fails. I then elected try to coil a wire in the upper pole. Do what I think is appropriate placement of wires and then dilate the tract. Then pass the working sheath into the collecting system and I'm obviously not in the collecting system. I then tried achieving needle into another posterior calyx middle/lower pole right. I can get the [place] needle into the collecting system but again I'm unable to advance a wire by the stone or coil a wire in the collecting system. After over an hour of attempting to do this I terminate the procedure. The patient is taken out of prone position and placed in lithotomy position. I will place a double-J catheter to dilate the UPJ and the track along the stone so that a second attempt at the percutaneous nephrostolithotomy can be made or a trans-ureteral lithotripsy can be performed. Cystoscopy Foroblique lens and 21- [place] sheath was passed in the bladder. The right ureteral orifice is identified. An 035 wire is able to pass up to the UPJ. With some difficulty I am able to manipulate by the stone into the middle pole calyx. Then over the wires passed a 6 x 26 double-J catheter that coils in the renal pelvis right and in the bladder. The bladder strain the patient is awakened and returned r ecovery room good condition. He tolerated the procedure well. He'll be discharged home upon recovery. I will discuss with him as an outpatient further options to rid him of this large stone
[2022-06-13 14:24] VITALS: TEMP 96.9
[2022-06-13 15:22] VITALS: BP 165/84; PULSE 65; RESP 18
--- NOTE | 2022-06-13 18:40 | FL ---
Intraoperative/procedural fluoroscopic services were provided. Total fluoroscopy time is 9.56 minutes with a total of 7 submitted images to PACS. Please see the operative/procedural note for further det ails.
== END 2022-06-13 15:35 | disposition home or self-care (01) ==
LOC: OR 09:45
PROVIDERS: ATTEND Urology
DX: N20.0 Calculus of kidney (principal); E11.9 Type 2 diabetes mellitus without complications; E78.5 Hyperlipidemia, unspecified; I10 Essential (primary) hypertension; G47.30 Sleep apnea, unspecified; Z99.89 Dependence on other enabling machines and devices; Z90.49 Acquired absence of other specified parts of digestive tract; Z98.84 Bariatric surgery status; Z98.890 Other specified postprocedural states; Z87.891 Personal history of nicotine dependence; Z80.42 Family history of malignant neoplasm of prostate; Z79.84 Long term (current) use of oral hypoglycemic drugs; Z79.890 Hormone replacement therapy; Z79.899 Other long term (current) drug therapy
CPT/HCPCS: 52281; 50080; 50435; 74018; C2625; C1769 ×5; C2628; C1729 ×3; J2250; J0330; J1100; J2710; J0690; J2405; J3010; J1170; J2704; Q9967; J2001; 86850; 86900; 86901

== ENCOUNTER 2022-07-13 06:42 | Day surgery (SDC) | payer MEDICARE, BC ==
[2022-07-13 07:23] VITALS: RESP 16; TEMP 96.9
[2022-07-13] MEDS ORDERED: LACTATED RINGERS 1,000 ML IV SCH (07:24)
[2022-07-13] MEDS ORDERED: LIDOCAINE 1% (10MG/ML) FOR IV START INTRADERMA ONE (07:33)
[2022-07-13 07:40] LABS: Glucose,Whole Blood 115 mg/dL (70-110)
[2022-07-13] MEDS ORDERED: PROPOFOL 10 MG/ML 20 ML VIAL IV ONE (07:46)
--- NOTE | 2022-07-13 07:51 | P.GSHP ---
History of Present Illness H&P Date: 07/13/22 Chief Complaint: Screening colonoscopy This a 66-year-old male who presents today for screening colonoscopy. Patient denies a significant GI complaints. His last colonoscopy was over 7 years ago. Past Medical History Past Medical History: Diabetes Mellitus, Hyperlipidemia, Hypertension, Sleep Apnea/CPAP/BIPAP Additional Past Medical History / Comment(s): kidney stones, diverticulosis uses cpap, History of Any Multi-Drug Resistant Organisms: None Reported Past Surgical History: Appendectomy, Bowel Resection, Cholecystectomy, Hernia Repair, Orthopedic Surgery Additional Past Surgical History / Comment(s): lithotripsy, colostomy/later reversal, curt great toe surgery, curt knee arthroscopy Past Anesthesia/Blood Transfusion Reactions: No Reported Reaction Smoking Status: Former smoker - Past Family History Father Family Medical History: Cancer Additional Family Medical History / Comment(s): Prostate Cancer. Medications and Allergies Home Medications Medication Instructions Recorded Confirmed Type Levothyroxine Sodium [Euthyrox] 50 mcg PO QAM 05/16/21 07/13/22 History Losartan/Hydrochlorothiazide 1 tab PO QAM 05/16/21 07/13/22 History [Hyzaar 100-12.5 Tablet] Nebivolol HCl [Bystolic] 10 mg PO HS 05/16/21 07/13/22 History Rosuvastatin [Crestor] 20 mg PO HS 05/16/21 07/13/22 History metFORMIN HCL 500 mg PO QAM 05/16/21 07/13/22 History Allergies Allergy/AdvReac Type Severity Reaction Status Date / Time No Known Allergies Allergy Verified 07/13/22 07:36 Surgical - Exam Vital Signs Temp Pulse Resp BP Pulse Ox 96.9 F L 72 16 175/90 95 07/13/22 07:22 07/13/22 07:22 07/13/22 07:22 07/13/22 07:22 07/13/22 07:22 - General well developed, well nourished, no distress - Eyes PERRL - ENT normal pinna - Neck no masses - Respiratory normal expansion - Cardiovascular Rhythm: regular - Abdomen Abdomen: soft, non tender Results - Labs Abnormal Lab Results - Last 24 Hours (Table) 07/13/22 Range/Units 07:30 POC Glucose (mg/dL) 115 H (70-110) mg/dL Assessment and Plan Assessment: We'll perform screening colonoscopy
--- NOTE | 2022-07-13 08:03 | P.OP ---
Date of Procedure: 07/13/22 Preoperative Diagnosis: Screening colonoscopy Postoperative Diagnosis: Diverticulosis Procedure(s) Performed: Colonoscopy Anesthesia: MAC Surgeon: Alex Blakely Pathology: none sent Condition: stable Disposition: PACU Description of Procedure: The patient's placed on the endoscopy table in the lateral position. He received IV sedation. Digital rectal exam was performed. This revealed no abnormality. The prostate was symmetric without nodules. Flexible colonoscope was then placed patient anus passed throughout the colon. The patient had a colorectal anastomosis was visualized proximally 10 cm from anal verge. Scope was placed throughout the colon. The ileocecal valve was visualized. The cecum, ascending and transverse colon appeared normal. In the descending colon there was extensive diverticular changes. Scope was then brought back and the remaining rectum. The colorectal anastomosis was visualized. There is no evidence of stricture. Scope was then withdrawn for patient.
[2022-07-13 08:30] VITALS: BP 142/72; PULSE 68
== END 2022-07-13 08:49 | disposition home or self-care (01) ==
LOC: ORWHC2ENDO 06:42
PROVIDERS: ATTEND Surgery
DX: Z12.11 Encounter for screening for malignant neoplasm of colon (principal); K57.30 Diverticulosis of large intestine without perforation or abscess without bleeding; E11.9 Type 2 diabetes mellitus without complications; I10 Essential (primary) hypertension; E78.5 Hyperlipidemia, unspecified; G47.30 Sleep apnea, unspecified; Z87.891 Personal history of nicotine dependence; Z80.42 Family history of malignant neoplasm of prostate; Z79.84 Long term (current) use of oral hypoglycemic drugs
CPT/HCPCS: G0121; J2704; 45378

== ENCOUNTER → 2022-07-19 | Outpatient (CLI) | payer MEDICARE, BC ==
[2022-07-19 14:26] LABS: Basophils # (A) 0.04 X 10*3/uL (0.00-0.10); Basophils % (A) 0.8 %; Eosinophils # (A) 0.23 X 10*3/uL (0.04-0.35); Eosinophils % (A) 4.7 %; HCT 47.3 % (39.6-50.0); HGB 15.2 g/dL (13.0-17.0); Immature Grans, Automated 0.6 %; Lymphocytes # (A) 0.94 X 10*3/uL (0.90-5.00); Lymphocytes % (A) 19.3 %; MCH 29.6 pg (27.0-32.0); MCHC 32.1 g/dL (32.0-37.0); MCV 92.2 fL (80.0-97.0); Mean Platelet Volume 10.7 fL (9.5-12.2); Monocytes # (A) 0.58 X 10*3/uL (0.20-1.00); Monocytes % (A) 11.9 %; NRBC Per 100 WBC 0 /100 WBCS (0.0-0.0); Neutrophils # (A) 3.06 X 10*3/uL (1.80-7.70); Neutrophils % (A) 62.7 %; Platelet Count 171 X 10*3/uL (140-440); RBC 5.13 X 10*6/uL (4.40-5.60); WBC 4.88 X 10*3/uL (4.50-10.00)
[2022-07-19 15:33] LABS: African American GFR (CKD) 106.5 (60.0-200.0); Anion Gap 12.4 mmol/L (10.00-18.00); BUN/Creat Ratio 15.52 Ratio (12.00-20.00); Blood Urea Nitrogen 12.8 mg/dL (9.0-27.0); Calcium 9.5 mg/dL (8.7-10.3); Carbon Dioxide 27.8 mmol/L (20.0-27.5); Non-African American GFR(CKD) 91.9 (60.0-200.0); Potassium 3.9 mmol/L (3.5-5.5)
[2022-07-19 19:20] LABS: Appearance,Urine Clear (Clear); Bacteria,Urine None Seen /HPF (None Seen); Bilirubin,Urine Negative (Negative); Blood,Urine Large (Negative); Color,Urine Orange (Yellow); Ketones,Urine Negative (Negative); Nitrite,Urine Negative (Negative); PH, Urine 7.5 (5.0-8.0); Specific Gravity,Urine 1.016 (1.001-1.030)
== END | disposition home or self-care (01) ==
LOC: LABPAT 09:14
PROVIDERS: ATTEND Urology
DX: Z01.812 Encounter for preprocedural laboratory examination (principal); N20.0 Calculus of kidney
CPT/HCPCS: 80048; 81001; 85025; 87086

== ENCOUNTER → 2022-09-05 | Outpatient (CLI) | payer MEDICARE, BC ==
[2022-09-05 14:20] LABS: Basophils # (A) 0.04 X 10*3/uL (0.00-0.10); Basophils % (A) 0.5 %; Eosinophils # (A) 0.24 X 10*3/uL (0.04-0.35); HCT 45.2 % (39.6-50.0); HGB 14.4 g/dL (13.0-17.0); Immature Grans, Automated 0.6 %; Lymphocytes # (A) 2.03 X 10*3/uL (0.90-5.00); Lymphocytes % (A) 25.5 %; MCHC 31.9 g/dL (32.0-37.0); MCV 90.9 fL (80.0-97.0); Monocytes # (A) 0.72 X 10*3/uL (0.20-1.00); NRBC Per 100 WBC 0 /100 WBCS (0.0-0.0); Neutrophils # (A) 4.89 X 10*3/uL (1.80-7.70); Neutrophils % (A) 61.4 %; Platelet Count 213 X 10*3/uL (140-440); RBC 4.97 X 10*6/uL (4.40-5.60); RDW 12.5 % (11.5-14.5); WBC 7.97 X 10*3/uL (4.50-10.00)
[2022-09-05 15:27] LABS: African American GFR (CKD) 107.9 (60.0-200.0); Anion Gap 12.3 mmol/L (10.00-18.00); BUN/Creat Ratio 15.75 Ratio (12.00-20.00); Blood Urea Nitrogen 12.6 mg/dL (9.0-27.0); Calcium 9.5 mg/dL (8.7-10.3); Carbon Dioxide 24.7 mmol/L (20.0-27.5); Non-African American GFR(CKD) 93.1 (60.0-200.0)
[2022-09-05 20:14] LABS: Appearance,Urine Clear (Clear); Bilirubin,Urine Negative (Negative); Blood,Urine Large (Negative); Color,Urine Yellow (Yellow); Ketones,Urine Negative (Negative); Nitrite,Urine Negative (Negative); PH, Urine 6.5 (5.0-8.0); Specific Gravity,Urine 1.009 (1.001-1.030); Urobilinogen,Urine 0.2 (0.2,1.0)
[2022-09-05 20:23] LABS: Bacteria,Urine None Seen /HPF (None Seen)
== END | disposition home or self-care (01) ==
LOC: LABPAT 10:14
PROVIDERS: ATTEND Urology
DX: Z01.812 Encounter for preprocedural laboratory examination (principal); N20.0 Calculus of kidney
CPT/HCPCS: 80048; 81001; 85025; 87086

== ENCOUNTER 2022-09-13 08:17 | Day surgery (SDC) | payer MEDICARE, BC ==
--- NOTE | 2022-09-12 20:58 | P.GSHP ---
History of Present Illness H&P Date: 09/12/22 66 yo male with large volume of stones in his right kidney. 75% of the stones were removed a few weeks ago. He comes for a second ureterorenoscopy right to remove the rest of the stones. - Constitutional Constitutional: Denies chills, Denies fever - EENT Eyes: denies blurred vision, denies pain Ears, nose, mouth and throat: Denies headache, Denies sore throat - Cardiovascular Cardiovascular: Denies chest pain, Denies shortness of breath - Respiratory Respiratory: Denies cough, Denies 7 - Gastrointestinal Gastrointestinal: Denies abdominal pain, Denies diarrhea, Denies nausea, Denies vomiting - Genitourinary (Female) Genitourinary: Denies dysuria, Denies hematuria - Genitourinary (Male) Genitourinary: Denies dysuria, Denies hematuria - Musculoskeletal Musculoskeletal: Denies myalgias - Integumentary Integumentary: Denies pruritus, Denies rash - Neurological Neurological: Denies numbness, Denies weakness - Psychiatric Psychiatric: Denies anxiety, Denies depression - Endocrine Endocrine: Denies fatigue, Denies weight change Past Medical History Past Medical History: Diabetes Mellitus, Hyperlipidemia, Hypertension, Osteoarthritis (OA), Sleep Apnea/CPAP/BIPAP, Thyroid Disorder Additional Past Medical History / Comment(s): kidney stones, diverticulosis, uses cpap, arthristis in knees, cataracts removed History of Any Multi-Drug Resistant Organisms: None Reported Past Surgical History: Appendectomy, Bowel Resection, Cholecystectomy, Hernia Repair, Orthopedic Surgery Additional Past Surgical History / Comment(s): lithotripsy, colostomy/later reversal, curt great toe surgery ingrown toe nails, curt knee arthroscopy Past Anesthesia/Blood Transfusion Reactions: No Reported Reaction Additional Past Anesthesia/Blood Transfusion Reaction / Comment(s): no blood transfusions Smoking Status: Former smoker - Past Family History Father Family Medical History: Cancer Additional Family Medical History / Comment(s): Prostate Cancer. Medications and Allergies Home Medications Medication Instructions Recorded Confirmed Type Levothyroxine Sodium [Euthyrox] 50 mcg PO QAM 05/16/21 09/08/22 History Losartan/Hydrochlorothiazide 1 tab PO QAM 05/16/21 09/08/22 History [Hyzaar 100-12.5 Tablet] Nebivolol HCl [Bystolic] 10 mg PO 05/16/21 09/08/22 History Rosuvastatin [Crestor] 20 mg PO HS 05/16/21 09/08/22 History metFORMIN HCL 500 mg PO QAM 05/16/21 09/08/22 History Allergies Allergy/AdvReac Type Severity Reaction Status Date / Time No Known Allergies Allergy Verified 09/08/22 13:53 Surgical - Exam - General well developed, well nourished, no distress - Eyes normal ocular movement, no icteric - ENT no hearing loss, no congestion - Neck no masses, trachea midline - Respiratory normal respiratory effort, clear to auscultation - Abdomen Abdomen: soft, non tender, no guarding, no rigid, no rebound - Integumentary no rash, no abnormal pigmentation - Neurologic no disoriented, no combative - Psychiatric oriented to time, oriented to person, oriented to place, speech is normal, memory intact Results - Imaging Abdominal x-ray: report reviewed, image reviewed CT scan - abdomen: report reviewed, image reviewed CT scan - pelvis: report reviewed, image reviewed Assessment and Plan Assessment: Impression: right renal stones.DM, HTN, Plan: right uretrorenoscopy with laser lithotripsy
[~2022-09-13 08:17] MED LIST changes: +AMPICILLIN 1,000 MG in SODIUM CHLORIDE 0.9% 50 ML IVPB PRN; +DEXAMETHASONE SOD PHOSPHATE 4 MG/ML 1 ML VIAL IV ONE; +GENTAMICIN 130 MG in SODIUM CHLORIDE 0.9% 100 ML IVPB PRN; +LACTATED RINGERS 1,000 ML IV SCH; -LIDOCAINE 1% (10MG/ML) FOR IV START INTRADERMA PRN; +MIDAZOLAM 2 MG/2 ML VIAL IV PRN; +ONDANSETRON 4 MG/2 ML VIAL IVP ONE
--- NOTE | 2022-09-13 08:42 | XR ---
EXAMINATION TYPE: XR KUB DATE OF EXAM: 09/13/2022 COMPARISON: 08/03/2022 INDICATION: Kidney stones presurgical evaluation TECHNIQUE: Frontal projection FINDINGS: There is a normal bowel gas pattern. Psoas margins are normal. No organomegaly is present. Double pigtail catheter is present on the right. Multiple bilateral renal stones are evident. On the right the largest measures 1.5 cm. On the left largest measures 1.8 cm. The right renal pelvic stone measuring 0.5 cm may be present. On the left a renal pelvic stone may measure 1.5 cm. IMPRESSION: 1. Bilateral renal calcifications. 2. Right renal stent
[2022-09-13 09:09] LABS: Glucose,Whole Blood 112 mg/dL (70-110)
[2022-09-13] MEDS ORDERED: GLYCOPYRROLATE 0.2 MG/ML 2 ML VIAL ONE (09:22)
[2022-09-13] MEDS ORDERED: fentaNYL (PF) 50 MCG/ML 2 ML AMP ONE (09:22)
[2022-09-13] MEDS ORDERED: LIDOCAINE 2% INJ 20 MG/ML (2 ML VIAL) ONE (09:22)
[2022-09-13] MEDS ORDERED: PROPOFOL 10 MG/ML 20 ML VIAL IV ONE (09:22)
[2022-09-13] MEDS ORDERED: HYDROmorphone (PF) 1 MG/ML ONE (09:22)
[2022-09-13] MEDS ORDERED: KETOROLAC 30 MG/ML 1 ML VIAL ONE (09:22)
[2022-09-13] MEDS ORDERED: ePHEDrine 50 MG/ML 1 ML VIAL ONE (09:22)
[2022-09-13] MEDS ORDERED: MIDAZOLAM 2 MG/2 ML VIAL ONE (09:22)
--- NOTE | 2022-09-13 10:54 | P.OP ---
Date of Procedure: 09/13/22 Preoperative Diagnosis: Right renal stones Postoperative Diagnosis: Same Procedure(s) Performed: The right ureteral renoscopy with laser lithotripsy Anesthesia: ABBY Surgeon: Supa Jackson Estimated Blood Loss (ml): 0 Pathology: other (Stone) Condition: stable Disposition: PACU Indications for Procedure: The patient is 66. He had a large volume of right renal stone and failed percutaneous nephrostolithotomy. He underwent right ureteroscopy laser lithotripsy to debulk most of the stone a couple weeks ago. He comes for a second procedure to remove the stent and the remaining stone Description of Procedure: The catheters grasped and pulled to urethral meatus. Through the stent and 035 wires passed into the kidney. I remove the stent and over the wires passed a [id number]-[id number] reentry sheath. The inner sheath is removed. Through the ureteral sheath the flexible scope was passed up into the kidney. Several smaller stones and fragments are seen and are broken with laser lithotripsy. I asked if the largest fragments of which there were no greater 2 mm a. At the don't debris left. A pullout ureteroscopy to the right ureter is performed and there is no stone. Stay out. I drained the bladder. The patient is awakened and returned recovery room in addition. He will follow in the office in one week. He'll need to have the left side treated at some point in time.
[2022-09-13 11:00] VITALS: TEMP 96.8
[2022-09-13 11:03] VITALS: RESP 16
--- NOTE | 2022-09-13 11:11 | FL ---
Intraoperative/procedural fluoroscopic services were provided. Total fluoroscopy time is 31.4 seconds with a total of 2 submitted images to PACS. Please see the operative/procedural note for further det ails. DAP: 9.0513
[2022-09-13 12:37] VITALS: BP 151/90
[2022-09-13 12:50] VITALS: PULSE 54
== END 2022-09-13 13:11 | disposition home or self-care (01) ==
LOC: OR 08:17
PROVIDERS: ATTEND Urology
DX: N20.0 Calculus of kidney (principal); E11.9 Type 2 diabetes mellitus without complications; E78.5 Hyperlipidemia, unspecified; I10 Essential (primary) hypertension; M19.90 Unspecified osteoarthritis, unspecified site; G47.33 Obstructive sleep apnea (adult) (pediatric); E07.9 Disorder of thyroid, unspecified; K57.90 Diverticulosis of intestine, part unspecified, without perforation or abscess without bleeding; Z90.49 Acquired absence of other specified parts of digestive tract; Z98.84 Bariatric surgery status; Z98.890 Other specified postprocedural states; Z98.41 Cataract extraction status, right eye; Z98.42 Cataract extraction status, left eye; Z99.89 Dependence on other enabling machines and devices; Z87.891 Personal history of nicotine dependence; Z80.8 Family history of malignant neoplasm of other organs or systems; Z79.84 Long term (current) use of oral hypoglycemic drugs; Z79.899 Other long term (current) drug therapy; Z79.890 Hormone replacement therapy
CPT/HCPCS: 82365; 74018; 52353; C1769; J2250; J1100; J2405; J3010; J1885; J1580; J0290; J1170; J2704; J2001

== ENCOUNTER → 2022-10-10 | Outpatient (CLI) | payer MEDICARE, BC ==
[2022-10-10 20:12] LABS: HCT 46.2 % (39.6-50.0); HGB 14.9 g/dL (13.0-17.0); MCH 29.5 pg (27.0-32.0); MCHC 32.3 g/dL (32.0-37.0); MCV 91.5 fL (80.0-97.0); Mean Platelet Volume 11.3 fL (9.5-12.2); NRBC Per 100 WBC 0 /100 WBCS (0.0-0.0); Platelet Count 228 X 10*3/uL (140-440); RBC 5.05 X 10*6/uL (4.40-5.60); RDW 13.1 % (11.5-14.5); WBC 7.41 X 10*3/uL (4.50-10.00)
[2022-10-10 20:23] LABS: African American GFR (CKD) 106.2 (60.0-200.0); Anion Gap 10.4 mmol/L (10.00-18.00); BUN/Creat Ratio 14.8 Ratio (12.00-20.00); Blood Urea Nitrogen 12.3 mg/dL (9.0-27.0); Calcium 9.4 mg/dL (8.7-10.3); Carbon Dioxide 30.5 mmol/L (20.0-27.5); Non-African American GFR(CKD) 91.6 (60.0-200.0); Potassium 4.5 mmol/L (3.5-5.5)
[2022-10-11 04:01] LABS: Appearance,Urine Clear (Clear); Bilirubin,Urine Negative (Negative); Blood,Urine Negative (Negative); Color,Urine Yellow (Yellow); Ketones,Urine Negative (Negative); Nitrite,Urine Negative (Negative); PH, Urine 7.5 (5.0-8.0); Specific Gravity,Urine 1.014 (1.001-1.030); Urobilinogen,Urine 0.2 (0.2,1.0)
[2022-10-11 04:08] LABS: Bacteria,Urine None Seen /HPF (None Seen)
== END | disposition home or self-care (01) ==
LOC: LABPAT 13:22
PROVIDERS: ATTEND Urology
DX: Z01.812 Encounter for preprocedural laboratory examination (principal); N20.0 Calculus of kidney; R31.29 Other microscopic hematuria
CPT/HCPCS: 36415; 80048; 81001; 85027; 87086

== ENCOUNTER 2022-10-18 06:19 | Day surgery (SDC) | payer MEDICARE, BC ==
--- NOTE | 2022-10-17 18:19 | P.GSHP ---
History of Present Illness H&P Date: 10/17/22 66 yo male with a history of stones. He recently underwent staged right ureterosrensoscpy for large renal stones. They are gone He has two stones on the left at 18 and 15 mm, He comes for left ureter.renoscopy with laser lithotripsy and stent this might require two stones also. The alternatives have been discussed - Constitutional Constitutional: Denies chills, Denies fever - EENT Eyes: denies blurred vision, denies pain Ears, nose, mouth and throat: Denies headache, Denies sore throat - Cardiovascular Cardiovascular: Denies chest pain, Denies shortness of breath - Respiratory Respiratory: Denies cough, Denies 7 - Gastrointestinal Gastrointestinal: Denies abdominal pain, Denies diarrhea, Denies nausea, Denies vomiting - Genitourinary (Female) Genitourinary: Denies dysuria, Denies hematuria - Genitourinary (Male) Genitourinary: Denies dysuria, Denies hematuria - Musculoskeletal Musculoskeletal: Denies myalgias - Integumentary Integumentary: Denies pruritus, Denies rash - Neurological Neurological: Denies numbness, Denies weakness - Psychiatric Psychiatric: Denies anxiety, Denies depression - Endocrine Endocrine: Denies fatigue, Denies weight change Past Medical History Past Medical History: Hyperlipidemia, Hypertension, Sleep Apnea/CPAP/BIPAP Additional Past Medical History / Comment(s): kidney stones, diverticulosis, uses cpap History of Any Multi-Drug Resistant Organisms: None Reported Past Surgical History: Appendectomy, Bowel Resection, Cholecystectomy, Hernia Repair, Orthopedic Surgery Additional Past Surgical History / Comment(s): lithotripsy x2, colostomy/later reversal, curt great toe surgery, curt knee arthroscopy Past Anesthesia/Blood Transfusion Reactions: No Reported Reaction Smoking Status: Former smoker - Past Family History Father Family Medical History: Cancer, Deep Vein Thrombosis (DVT) Additional Family Medical History / Comment(s): Prostate Cancer. Medications and Allergies Home Medications Medication Instructions Recorded Confirmed Type Levothyroxine Sodium [Euthyrox] 50 mcg PO QAM 05/16/21 10/13/22 History Losartan/Hydrochlorothiazide 1 tab PO QAM 05/16/21 10/13/22 History [Hyzaar 100-12.5 Tablet] Nebivolol HCl [Bystolic] 10 mg PO HS 05/16/21 10/13/22 History Rosuvastatin [Crestor] 20 mg PO HS 05/16/21 10/13/22 History metFORMIN HCL 500 mg PO QAM 05/16/21 10/13/22 History Allergies Allergy/AdvReac Type Severity Reaction Status Date / Time No Known Allergies Allergy Verified 10/13/22 12:02 Surgical - Exam - General well developed, well nourished, no distress - Eyes normal ocular movement, no icteric - ENT no hearing loss, no congestion - Neck no masses, trachea midline - Respiratory normal respiratory effort, clear to auscultation - Abdomen Abdomen: soft, non tender, no guarding, no rigid, no rebound - Integumentary no rash, no abnormal pigmentation - Neurologic no disoriented, no combative - Psychiatric oriented to time, oriented to person, oriented to place, speech is normal, memory intact Results - Imaging Abdominal x-ray: report reviewed, image reviewed CT scan - abdomen: report reviewed, image reviewed CT scan - pelvis: report reviewed, image reviewed Assessment and Plan Assessment: Impression: Left renal stones, large. HTN, hyper lipidemia. Plan: Left ureterorenoscopy with laser lithotripsy and stent.
[~2022-10-18 06:19] MED LIST changes: -AMPICILLIN 1,000 MG in SODIUM CHLORIDE 0.9% 50 ML IVPB PRN; -GENTAMICIN 130 MG in SODIUM CHLORIDE 0.9% 100 ML IVPB PRN; -HYDROmorphone 0.5 MG/0.5 ML SYRINGE IVP PRN; +LIDOCAINE 1% (10MG/ML) FOR IV START INTRADERMA PRN; +ceFAZolin 3 GM in SODIUM CHLORIDE 0.9% 100 ML IVPB PRN
[2022-10-18] MEDS ORDERED: HYDROmorphone 0.5 MG/0.5 ML SYRINGE IVP PRN (07:00)
[2022-10-18] MEDS ORDERED: LIDOCAINE 1% (10MG/ML) FOR IV START INTRADERMA ONE (07:25)
[2022-10-18] MEDS ORDERED: ONDANSETRON 4 MG/2 ML VIAL ONE (07:36)
--- NOTE | 2022-10-18 07:42 | XR ---
EXAMINATION TYPE: XR KUB DATE OF EXAM: 10/18/2022 Comparison: 09/13/2022 Clinical History: 66-year-old male preoperative assessment N20.0 Findings: Interval removal of the right-sided ureteral stent. Right-sided pelvic phleboliths. Bilateral renal c alculi are present measuring up to 1 cm on the right and 1.7 cm on the left. Cholecystectomy clips. S cattered mild to moderate stool. Nonobstructive bowel gas pattern. Impression: Multiple bilateral nephrolithiasis measuring up to 1.7 cm. Removal of the previous right ureteral leandra nt.
[2022-10-18 07:53] LABS: Glucose,Whole Blood 119 mg/dL (70-110)
[2022-10-18] MEDS ORDERED: ePHEDrine 50 MG/ML 1 ML VIAL ONE (07:53)
[2022-10-18] MEDS ORDERED: MIDAZOLAM 2 MG/2 ML VIAL ONE (07:53)
[2022-10-18] MEDS ORDERED: WATER FOR INJECTION, STERILE 10 ML VIAL IV ONE (07:53)
[2022-10-18] MEDS ORDERED: PROPOFOL 10 MG/ML 20 ML VIAL IV ONE (07:53)
[2022-10-18] MEDS ORDERED: GLYCOPYRROLATE 0.2 MG/ML 2 ML VIAL ONE (07:53)
[2022-10-18] MEDS ORDERED: LIDOCAINE 2% INJ 20 MG/ML (2 ML VIAL) ONE (07:53)
[2022-10-18] MEDS ORDERED: SUCCINYLCHOLINE CHLORIDE 200 MG/10 ML VIAL IV ONE (07:53)
[2022-10-18] MEDS ORDERED: fentaNYL (PF) 50 MCG/ML 2 ML AMP ONE (07:53)
--- NOTE | 2022-10-18 09:32 | P.OP ---
Date of Procedure: 10/18/22 Preoperative Diagnosis: Left renal stones large Postoperative Diagnosis: Same Procedure(s) Performed: Cystoscopy with left ureteral renoscopy laser lithotripsy and placement of 6 x 26 stent Anesthesia: ABBY Surgeon: Supa Jackson Estimated Blood Loss (ml): 0 Pathology: none sent Condition: stable Disposition: PACU Indications for Procedure: The patient is 66. He has active kidney stone disease. He had several large stones in the right renal pelvis treated with ureteroscopy and laser lithotripsy. There are only small fragments left. He has an left 18 mm renal pelvis and 12 mm plus renal stones. He requests left ureteroscopy over percutaneous nephrostolithotomy. He comes for this procedure Description of Procedure: The patient is brought to the operating suite. He is given a general anesthetic. He's placed in lithotomy position with a sterile prep and drape. Cystoscopy of the Foroblique lens and 21-[place] sheath identifies a normal urethra. The prostate is not obstructing. The bladder webster unremarkable. The left ureteral orifice is intubated with an 035 wire passed up into the kidney. Over the wires passed a 72-44-[place] reentry sheath into the left ureter up into the left renal pelvis. The inner sheath is removed as was the wire. With the flexible ureteroscope I passed into the renal pelvis and identify the 18 mm obstructing stone. With the 275 probe and stone is broken into tiny fragments and flushed out. I then look through each calyx. I identify smaller stones which are also broken up with the laser. I attempt to identify one stone in the left lower pole calyx however due to severe angulation I'm unable to reach this with the scope let alone the laser probe. I thus terminate the procedure. I can consider shockwave lithotripsy to that stone at a later date. An 035 wires passed through the sheath and backloaded onto the cystoscope. Over the wires passed a 6 x 26 double-J catheter that coils in the left renal pelvis and in the bladder. The patient is awakened and returned recovery in good condition. He will be discharged home upon recovery and found the office 1 week for KUB review and probable stent removal.
[2022-10-18 09:53] VITALS: RESP 18; TEMP 97.6
[2022-10-18 10:45] VITALS: BP 155/87; PULSE 62
--- NOTE | 2022-10-18 15:05 | FL ---
EXAMINATION TYPE: FL guidance operating room DATE OF EXAM: 10/18/2022 FLUOROSCOPY Fluoroscopy time of 44 seconds was used during urologic intervention for left kidney stone. 4 image/ s document/s the procedure. 16.381 DAP.
== END 2022-10-18 10:53 | disposition home or self-care (01) ==
LOC: OR 06:19
PROVIDERS: ATTEND Urology
DX: N20.0 Calculus of kidney (principal); I10 Essential (primary) hypertension; E78.5 Hyperlipidemia, unspecified; G47.33 Obstructive sleep apnea (adult) (pediatric); Z90.49 Acquired absence of other specified parts of digestive tract; Z98.890 Other specified postprocedural states; Z87.891 Personal history of nicotine dependence; Z80.42 Family history of malignant neoplasm of prostate; Z79.899 Other long term (current) drug therapy; Z79.84 Long term (current) use of oral hypoglycemic drugs
CPT/HCPCS: 74018; 52356; C1769; J2250; J0330; J1100; J0690; J2405; J3010; J2704; J2001

== ENCOUNTER → 2022-11-16 | Outpatient (CLI) | payer MEDICARE, BC ==
--- NOTE | 2022-11-16 10:44 | P.PN ---
Subjective DATE: 11/16/2022 FOLLOW UP VISIT. Patient with obstructive sleep apnea hypopnea syndrome return to sleep center for follow-up visit. Information from previous visit have been reviewed. Patient is using PAP equipment every night for the whole night, getting PAP supplies in time. The patient does not have significant problems with the mask, PAP unit and humidification. [place] sleepiness scale is 4, which is normal. I checked information from PAP unit. PAP unit pressure 11 cm H2O. Usage is 100 % for more then 4 hours, average 7 hours per night. Leak is 16 l/m, which is in acceptable range. Apnea Hypopnea Index is 1.2, which is normal. MEDICATIONS:1. Losartan/hydrochlorothiazide 100-12.5 mg once a day 2. Metformin 500 mg once a day 3. Levothyroxine 50 g once a day 4. Rosuvastatin 20 mg once a day During physical exam: GENERAL: A pleasant patient without any distress. VITAL SIGNS: BP198/101, HR57, RR 16 , weight 275, temperature 97.8, oxygen saturation at room air 97 % . HEENT: PERRLA, EOMI.low position of soft palate, Mallapati 3-4 . NECK: Supple. No JVD. LUNGS: Clear to percussion and to auscultation. Good air exchange. No wheezing or rhonchi. HEART: S1, S2 regular. ABDOMEN: Soft and nontender. Slightly obese EXTREMITIES: No clubbing or cyanosis. HOSEMAN: Awake, alert, and oriented x3. No focal deficit. Impressions: 1. Obstructive sleep apnea-hypopnea syndrome. Patient demonstrated great compl iance with treatment, benefiting from treatment. 2. Obesity, BMI 42.9 . 3. History of multiple kidney stones, status post multiple surgical treatments . 4. Hypertension . 5. Hypothyroidism . 6. Hyperlipidemia . Plan: 1. Continue using PAP equipment every night for the whole night. 2. To change air filter at least 1-2 times per month. 3. PAP unit should stay lower then position of the head. 4. Advised patient to remove all remaining water from humidifier canister daily and make it dry after each usage. Refill canister with fresh distilled water before each usage. 5. Sleep hygiene with regular time in bed for at least 8 hours. 6. Precautions related to driving. No driving if feel any sleepiness. 7. I will maintain prescription for PAP supplies including mask, tube, filters. 8. Watching and losing weight. 9. Follow up visit in 6 months or earlier if patient has any problems. Thank you very much for allowing me to participate in the management of your patient. Juan F Garnett MD, PhD, FAASM. Diplomat of [place] [employer], Sleep Medicine Board by [place] [employer] Master Cosmetologist of [facility] [place]
== END ==
LOC: 3 N SLEEP 10:09
PROVIDERS: ATTEND Internal Medicine
DX: G47.33 Obstructive sleep apnea (adult) (pediatric) (principal); Z99.89 Dependence on other enabling machines and devices; E03.9 Hypothyroidism, unspecified; E78.5 Hyperlipidemia, unspecified; I10 Essential (primary) hypertension; E66.9 Obesity, unspecified; Z79.84 Long term (current) use of oral hypoglycemic drugs; Z68.41 Body mass index [BMI] 40.0-44.9, adult; Z79.899 Other long term (current) drug therapy; Z87.442 Personal history of urinary calculi; Z87.891 Personal history of nicotine dependence
CPT/HCPCS: 99212

== ENCOUNTER → 2022-11-24 | Outpatient (CLI) | payer MEDICARE, BC ==
--- NOTE | 2022-11-27 16:18 | XR ---
EXAMINATION TYPE: XR KUB DATE OF EXAM: 11/24/2022 7:56 AM INDICATION: Patient age:Male; 66 years old; Reason for study: N20.0; [facility]. COMPARISON: 10/24/2022 TECHNIQUE: One radiographic view of the abdomen was obtained. FINDINGS: Right upper quadrant cholecystectomy clips. There is bilateral consultations projecting ove r the kidneys measuring up to 9 mm on the right and 7 mm on the left. Ureteral stent is no longer vis ualized. The bowel gas pattern is nonspecific without dilated loops of small or large bowel. The osse ous structures are intact. Fecal material and gas are demonstrated throughout the colon and rectum. IMPRESSION: Bilateral calcifications project over the kidneys. Ureteral stent is then removed from 10/24/2022.
== END | disposition home or self-care (01) ==
LOC: RADXRMAIN 07:43
PROVIDERS: ATTEND Urology
DX: N20.0 Calculus of kidney (principal)
CPT/HCPCS: 74018

== ENCOUNTER → 2023-03-28 | Outpatient (CLI) | payer MEDICARE, BC ==
--- NOTE | 2023-03-28 15:54 | XR ---
EXAMINATION TYPE: XR KUB DATE OF EXAM: 03/28/2023 HISTORY: Pain Comparison: 11/24/2022 Single KUB is submitted for interpretation. Findings: Right renal calculi: Multiple right-sided renal calculi redemonstrated the largest noted within the l ower pole measures 8.3 mm versus 8.7 mm previously. Right ureteral calculi: None Visualized. Left renal calculi: Multiple calculi left kidney are redemonstrated with largest seen within the low er pole measures 1.1 cm versus 1.1 cm previously. Left ureteral calculi: None Visualized. Pelvic calcifications: Calcifications within the right hemipelvis is unchanged. Bowel gas pattern is unremarkable. No free air. No mass effects. IMPRESSION: 1. Bilateral nephrolithiasis.
== END | disposition home or self-care (01) ==
LOC: RADXRMAIN 15:27
PROVIDERS: ATTEND Urology
DX: N20.0 Calculus of kidney (principal)
CPT/HCPCS: 74018

== ENCOUNTER → 2023-04-19 | Outpatient (CLI) | payer MEDICARE, BC ==
--- NOTE | 2023-04-19 14:21 | XR ---
EXAMINATION TYPE: XR KUB DATE OF EXAM: 04/19/2023 1:59 PM CLINICAL INDICATION:Male, 67 years old with history of N20.0 Calculus kidney; [facility] COMPARISON: 03/28/2023. TECHNIQUE: One radiographic view of the abdomen was obtained. FINDINGS: Nonobstructive bowel gas pattern. There is moderate amount of stool throughout the colon. B ilateral renal calculi measuring up to 16 mm on the left and 9 mm on the right. Multilevel degenerati on changes throughout the spine. Quadrant cholecystectomy clips. Degeneration changes of the hips with osteophyte formation. IMPRESSION: Bilateral renal calculi. Not significantly changed compared to 03/28/2023.
== END | disposition home or self-care (01) ==
LOC: RADXRMAIN 13:47
PROVIDERS: ATTEND Urology
DX: N20.0 Calculus of kidney (principal)
CPT/HCPCS: 74018

== ENCOUNTER → 2023-04-26 | Outpatient (CLI) | payer MEDICARE, BC ==
--- NOTE | 2023-04-26 13:50 | XR ---
EXAMINATION TYPE: XR KUB DATE OF EXAM: 04/26/2023 COMPARISON: Multiple KUB with most recent 04/19/2023 HISTORY: Calculus of kidney TECHNIQUE: Single supine KUB image of the abdomen is obtained FINDINGS: Small bowel demonstrates no evidence for dilatation or air fluid levels. Gas and fecal material is seen in non-distended colon. Stable pelvic phleboliths. Redemonstration of bilateral renal calculi with the largest on the left me asuring 1.1 cm and largest on the right measuring 1.0 cm. There are approximately 3 calculi in the le ft and 5 calculi in the right. Cholecystectomy clips in the right upper quadrant. The osseous structures are intact. Degenerative changes of the visualized lumbar spine. IMPRESSION: Bilateral nephrolithiasis. No significant change from prior exam.
== END | disposition home or self-care (01) ==
LOC: RADXRMAIN 13:25
PROVIDERS: ATTEND Urology
DX: N20.0 Calculus of kidney (principal)
CPT/HCPCS: 74018

== ENCOUNTER → 2023-08-02 | Outpatient (CLI) | payer MEDICARE, BC ==
--- NOTE | 2023-08-02 16:37 | P.PN ---
Subjective DATE: 08/02/2023 FOLLOW UP VISIT. Patient with obstructive sleep apnea hypopnea syndrome return to sleep center for follow-up visit. Information from previous visit have been reviewed. Patient is using PAP equipment every night for the whole night, getting PAP supplies in time. The patient does not have significant problems with the mask, PAP unit and humidification. [place] sleepiness scale is 3. I checked information from PAP unit. PAP unit pressure 11 cm H2O. Usage is 100 % for more then 4 hours, average 7.2 hours per night. Leak is 14 l/m, which is in acceptable range. Apnea Hypopnea Index is 1.2, which is normal. MEDICATIONS:1. Amlodipine 5 mg once a day 2. Metformin 500 mg twice a day 3. Losartan/hydrochlorothiazide 100-12.5 mg once a day 4., Rosuvastatin 20 mg once a day 5. Levothyroxine 50 g once a day During physical exam: GENERAL: A pleasant patient without any distress. VITAL SIGNS: BP 138/84, HR 72, RR 18, weight 243.4, temperature 98.0, oxygen saturation at room air 97 % . HEENT: PERRLA, EOMI.low position of soft palate, Mallapati 3-4 . NECK: Supple. No JVD. LUNGS: Clear to percussion and to auscultation. Good air exchange. No wheezing or rhonchi. HEART: S1, S2 regular. ABDOMEN: Soft and nontender.[] EXTREMITIES: No clubbing or cyanosis. TWO NEEDLE MACHINE OPERATOR: Awake, alert, and oriented x3. No focal deficit. I explained to the patient how to adjust she did humidifier. Level of humidity was increased to the level of 6. Impressions: 1. Obstructive sleep apnea-hypopnea syndrome. Patient demonstrated great compliance with treatment, benefiting from treatment. 2. Hypertension. 3. Hypothyroidism. 4. Diabetes mellitus. 5. Obesity, patient lost 32 pounds since previous visit. 6. History of multiple kidney stones, status post multiple surgical treatment. 7. Hyperlipidemia. Plan: 1. Continue using PAP equipment every night for the whole night. 2. To change air filter at least 1-2 times per month. 3. PAP unit should stay lower then position of the head. 4. Advised patient to remove all remaining water from humidifier canister daily and make it dry after each usage. Refill canister with fresh distilled water before each usage. 5. Sleep hygiene with regular time in bed for at least 8 hours. 6. Precautions related to driving. No driving if feel any sleepiness. 7. I will maintain prescription for PAP supplies including mask, tube, filters. 8. Follow up visit in 6 months or earlier if patient has any problems. 9. Watching and continue losing weight. Thank you very much for allowing me to participate in the management of your patient. Juan F Garnett MD, PhD, FAASM. Diplomat of [place] [employer], Sleep Medicine Board by [place] [employer] Supervisor [employer] of [facility] [place]
== END ==
LOC: 3 N SLEEP 15:36
PROVIDERS: ATTEND Internal Medicine
DX: G47.33 Obstructive sleep apnea (adult) (pediatric) (principal); I10 Essential (primary) hypertension; E03.9 Hypothyroidism, unspecified; E11.9 Type 2 diabetes mellitus without complications; E66.9 Obesity, unspecified; E78.5 Hyperlipidemia, unspecified; Z87.442 Personal history of urinary calculi; Z79.84 Long term (current) use of oral hypoglycemic drugs; Z79.899 Other long term (current) drug therapy; Z79.890 Hormone replacement therapy; Z99.89 Dependence on other enabling machines and devices
CPT/HCPCS: 99212

== ENCOUNTER → 2024-01-29 | Outpatient (CLI) | payer MEDICARE, BC | END | disposition home or self-care (01) | LOC: LABPRL 08:45 | PROVIDERS: ATTEND Family Medicine | DX: R60.9 Edema, unspecified (principal) | CPT/HCPCS: 80053 ==

== ENCOUNTER → 2024-03-13 | Outpatient (CLI) | payer MEDICARE, BC ==
[2024-03-13 16:09] VITALS: BP 155/88; PULSE 70; RESP 16; TEMP 97.8
--- NOTE | 2024-03-13 17:25 | P.PROGSL ---
Subjective DATE: 03/13/2024 FOLLOW UP VISIT. Patient with obstructive sleep apnea hypopnea syndrome return to sleep center for follow-up visit. Information from previous visit have been reviewed. Patient is using PAP equipment every night for the whole night, getting PAP supplies in time. The patient does not have significant problems with the mask, PAP unit and humidification. [place] sleepiness scale is 5, which is normal. I checked information from PAP unit. PAP unit pressure 11 cm H2O. Usage is 95% for more then 4 hours, average 7.4 hours per night. Leak is 11 l/m, which is in acceptable range. Apnea Hypopnea Index is 0.9, which is normal. MEDICATIONS have been reviewed, please see below. During physical exam: GENERAL: A pleasant patient without any distress. VITAL SIGNS: Please see below, weight is 258 lbs. HEENT: PERRLA, EOMI.low position of soft palate, Mallapati 34. NECK: Supple. No JVD. LUNGS: Clear to percussion and to auscultation. Good air exchange. No wheezing or rhonchi. HEART: S1, S2 regular. ABDOMEN: Soft and nontender.[] EXTREMITIES: No clubbing or cyanosis. AUTO BENCH MECHANIC: Awake, alert, and oriented x3. No focal deficit. Impressions: 1. Obstructive sleep apnea-hypopnea syndrome. Patient demonstrated great compliance with treatment, benefiting from treatment. 2. Mild obesity, BMI 30.2, patient increased weight on 15 pounds comparing with previous visit. 3. Hypertension. 4. Hypothyroidism. 5. Diabetes mellitus. 6. Hyperlipidemia. 7. History of nephrolithiasis. 8. Status post bilateral knee replacement. Plan: 1. Continue using PAP equipment every night for the whole night. 2. Sleep hygiene with regular time in bed for at least 7.5-8 hours 3. PAP unit should stay lower then position of the head. 4. Advised patient to remove all remaining water from humidifier canister daily and make it dry after each usage. Refill canister with fresh distilled water before each usage. 5. Watching weight. 6. Precautions related to driving. No driving if feel any sleepiness. 7. I will maintain prescription for PAP supplies including mask, tube, filters. 8. Follow up visit in 1 year or earlier if patient has any problems. Thank you very much for allowing me to participate in the management of your patient. Juan F Garnett MD, PhD, FAASM. Diplomat of [place] [employer], Sleep Medicine Board by [place] [employer] Education Nurse of [facility] [place] Objective - Vital Signs Vital Signs: Vital Signs Temp 97.8 F 03/13/24 16:07 Pulse 70 03/13/24 16:07 Resp 16 03/13/24 16:07 BP 155/88 03/13/24 16:07 Pulse Ox 97 03/13/24 16:07 FiO2 Intake & Output 03/12/24 03/13/24 03/13/24 18:59 06:59 18:59 Weight 117.027 kg Home Medications: Home Medications Medication Instructions Recorded Confirmed Type Levothyroxine Sodium [Euthyrox] 50 mcg PO QAM 05/16/21 03/13/24 History Losartan/Hydrochlorothiazide 1 tab PO QAM 05/16/21 03/13/24 History [Hyzaar 100-12.5 Tablet] Nebivolol HCl [Bystolic] 10 mg PO HS 05/16/21 03/13/24 History Rosuvastatin [Crestor] 20 mg PO HS 05/16/21 03/13/24 History metFORMIN HCL 500 mg PO QAM 05/16/21 03/13/24 History Gabapentin 300 mg PO DAILY 03/13/24 03/13/24 History amLODIPine [Norvasc] 5 mg PO DAILY 03/13/24 03/13/24 History
== END ==
LOC: 3 N SLEEP 15:35
PROVIDERS: ATTEND Internal Medicine
CPT/HCPCS: 99212

== ENCOUNTER → 2024-06-19 | Outpatient (CLI) | payer MEDICARE, OTHER ==
--- NOTE | 2024-06-19 11:13 | CA ---
Exercise Stress Test Report Name: Evelio Bacon Exam Date: 06/19/2024 08:45 Exam Location: [facility] Ht (in): 66 Wt (lb): 260 BSA: 2.24 Ordering Phys: Daniel Billy DO Referring Phys: Marcia Sauceda [facility] Technologist: Jayce Ramsey Age: 68 Gender: M : 1955 Procedure CPT: Indications: I51.9 CVD ICD-10 Codes: Patient History: HTN, DIABETIC, HYPERCHOLESTEROLEMIA, FAMILY HX OF HEART DISEASE Medications: LEVOTHYROXINE, AMLODIPINE, FUROSEMIDE, METFORMIN, ROSUVASTATIN, NEBIVOLOL, LOSARTAN, TYLENOL Meds past 24 hrs: Pretest Chest Pain: STRESS TEST Gerry Protocol Exercise Duration (min:sec): 06:[address] Depressions (mm): Angina Score: Leon Score: Resting HR (bpm): 69 Peak HR (bpm): 136 Resting BP (mmHg): 146 / 93 Peak BP (mmHg): 211 / 103 MPHR: 152 Target HR: 129 % MPHR: 89 METS: 7.7 Total Dose: Peak Dose: Atropine: Double Product: 70346 BP Response: Stress Termination: TARGET HR REACHED/MAX EXERTION Stress Symptoms: NO SYMPTOMS Stress Summary: ECG ANALYSIS Resting ECG: Stress ECG: CONCLUSIONS Good exercise tolerance Normal electrocardiogram stress testing Dr. Adalberto Vincent MD (Electronically Signed) Final Date: 19 June 2024 11:12
== END | disposition home or self-care (01) ==
LOC: RADNMMAIN 08:27
PROVIDERS: ATTEND Family Medicine
DX: I25.10 Atherosclerotic heart disease of native coronary artery without angina pectoris (principal); I51.9 Heart disease, unspecified; Z82.49 Family history of ischemic heart disease and other diseases of the circulatory system; I10 Essential (primary) hypertension; E78.00 Pure hypercholesterolemia, unspecified; E11.9 Type 2 diabetes mellitus without complications
CPT/HCPCS: 93017

== ENCOUNTER 2024-10-14 08:59 | Observation (INO) | payer MEDICARE, OTHER ==
[2024-10-14] MEDS: ASPIRIN 81 MG PO STA (09:48)
[2024-10-14 10:15] LABS: Basophils # (A) 0.07 10*3/uL (0.00-0.10); Basophils % (A) 0.9 %; Eosinophils # (A) 0.19 10*3/uL (0.04-0.35); Eosinophils % (A) 2.4 %; HCT 46.5 % (39.6-50.0); HGB 15.4 g/dL (13.0-17.0); Lymphocytes # (A) 1.93 10*3/uL (0.90-5.00); Lymphocytes % (A) 24.6 %; MCH 29.7 pg (27.0-32.0); MCHC 33.1 g/dL (32.0-37.0); MCV 89.6 fL (80.0-97.0); Mean Platelet Volume 10.1 fL (9.5-12.2); Monocytes # (A) 0.59 10*3/uL (0.20-1.00); Monocytes % (A) 7.5 %; Neutrophils # (A) 4.97 10*3/uL (1.80-7.70); Neutrophils % (A) 63.2 %; Platelet Count 229 10*3/uL (140-440); RBC 5.19 10*6/uL (4.40-5.60); RDW 13.6 % (11.5-14.5); WBC 7.86 10*3/uL (4.50-10.00)
[2024-10-14 10:32] LABS: Partial Thromboplastin Time 24.1 sec (22.0-30.0); Prothrombin Time 11.1 sec (10.0-12.5)
[2024-10-14 10:35] LABS: ALT 47 U/L (4-49); African American GFR (CKD) >90 (>60 ml/min/1.73 sqM); Albumin 4.6 g/dL (3.5-5.0); Anion Gap 10 mmol/L; Blood Urea Nitrogen 17 mg/dL (9-20); Calcium 9.8 mg/dL (8.4-10.2); Carbon Dioxide 30 mmol/L (22-30); Chloride 99 mmol/L (98-107); Glucose 151 mg/dL (74-99); Non-African American GFR(CKD) >90 (>60 ml/min/1.73 sqM); Sodium 139 mmol/L (137-145); Total Bilirubin 0.7 mg/dL (0.2-1.3); Total Protein 7.4 g/dL (6.3-8.2)
[2024-10-14 10:42] LABS: Magnesium 1.8 mg/dL (1.6-2.3); NT-Pro-B-Type Natriuretic Pept 46 pg/mL; Potassium 4.1 mmol/L (3.5-5.1)
[2024-10-14 10:43] LABS: AST 41 U/L (17-59); Alkaline Phosphatase 74 U/L (38-126)
--- NOTE | 2024-10-14 10:47 | XR ---
EXAMINATION TYPE: XR chest 2V DATE OF EXAM: 10/14/2024 10:33 AM COMPARISON: 02/06/2021 CLINICAL INDICATION: Male, 68 years old with history of Chest Pain, , TECHNIQUE: Frontal and lateral views FINDINGS: Heart borderline enlarged. Aorta and pulmonary vasculature within normal limits. No consolidation or pleural effusion. IMPRESSION: Borderline heart size. No acute process seen. [facility], Workstation: [facility], 10/14/2024 10:45 AM
--- NOTE | 2024-10-14 11:40 | CT ---
EXAMINATION TYPE: CT chest angio for PE DATE OF EXAM: 10/14/2024 11:25 AM COMPARISON: Radiograph same day. CLINICAL INDICATION: Male, 68 years old with history of pain; Chest pain x 4 days, elevated dimer TECHNIQUE/CONTRAST: CTA scan of the thorax is performed with IV Contrast, patient injected with 100 ml mL of Isovue 370, MIP images are created and reviewed these are created on a separate workstation.. CT DLP: 839.9 mGycm, Automated exposure control for dose reduction was used. FINDINGS: The heart is normal size with trace anterior basilar pericardial fluid. No flattening of the interven tricular septum or reflux of contrast into the hepatic veins. Prominent LAD coronary artery calcifica tions are present. Aorta normal caliber with bovine configuration to the aortic arch. Scattered nonenlarged and some borderline-sized mediastinal lymph nodes measuring up to 8 mm in the p revascular space, probably reactive/post inflammatory. There is suboptimal contrast bolus with enhancement of the pulmonary arterial system only 147 Hounsfi eld units. Alignment for this limitation, no large central or lobar branch pulmonary embolus. No defi nite pulmonary embolus seen elsewhere though assessment is very limited and these more distal ranges. Mild diffuse bronchial wall thickening. This may be seen with bronchitis or asthma. Some strandy atel ectasis or scarring at the lung bases. No pleural effusion. There is a small hiatal hernia. Suspect underlying fatty infiltration of the liver. Cholecystectomy c lips. Possible small early cortical nodule/mass anterior upper pole right kidney measuring 9 mm. 3-6 month follow-up CT is recommended to reassess. Bones: No osseous destructive process. IMPRESSION: 1. Suboptimal contrast bolus. No large central or definite lobar branch pulmonary embolus. Many of th e segmental and more distal arterial branches are very limited. No definite pulmonary embolus is seen . 2. Prominent LAD coronary artery calcifications. 3. Mild diffuse bronchial wall thickening may be seen with bronchitis or asthma. Some strandy atelect asis or scarring in the lower lungs. 4. Possible small early cortical nodule/mass anterior upper pole right kidney measuring 9 mm. 3-6 mon th follow-up CT is recommended to reassess. A small early RCC is not excluded at this time. 5. Small hiatal hernia. [facility], , 10/14/2024 11:37 AM
[2024-10-14] MEDS: ONDANSETRON 4 MG/2 ML VIAL IVP STA (12:47)
[2024-10-14] MEDS: MAG HYDROX/AL HYDROX/SIMETH 30 ML CUP PO STA (12:49)
[2024-10-14] MEDS ORDERED: NITROGLYCERIN SL TABS 0.4 MG TAB SUBLINGUAL PRN (13:10)
--- NOTE | 2024-10-14 13:10 | ED ---
Chest Pain HPI - General Chief Complaint: Chest Pain Stated Complaint: Mild chest pain Time Seen by Provider: 10/14/24 09:07 Source: patient, RN notes reviewed Limitations: no limitations - History of Present Illness Initial Comments: 68-year-old male presents emergency department chief complaint of chest discomfort. Patient states that symptoms last few days. Patient states its left-sided mid chest states nothing makes it feel better or worse. He states occasionally feels short of breath. He states he had a stress test few months ago which he reports was normal but states he has a history of hyperlipidemia diabetes hypertension family cardiac history. Patient denies fevers or chills he states he complained of some indigestion. - Related Data Home Medications Medication Instructions Recorded Confirmed Levothyroxine Sodium [Euthyrox] 50 mcg PO DAILY 05/16/21 10/14/24 Losartan/Hydrochlorothiazide 1 tab PO HS 05/16/21 10/14/24 [Hyzaar 100-12.5 Tablet] Rosuvastatin [Crestor] 20 mg PO HS 05/16/21 10/14/24 metFORMIN HCL 500 mg PO BID 05/16/21 10/14/24 amLODIPine [Norvasc] 5 mg PO DAILY 03/13/24 10/14/24 Furosemide [Lasix] 20 mg PO DAILY 10/14/24 10/14/24 Nebivolol HCl [Bystolic] 10 mg PO HS 10/14/24 10/14/24 Allergies Allergy/AdvReac Type Severity Reaction Status Date / Time No Known Allergies Allergy Verified 10/14/24 10:32 Review of Systems ROS Statement: Those systems with pertinent positive or pertinent negative responses have been documented in the HPI. ROS Other: All systems not noted in ROS Statement are negative. EKG Findings - EKG Comments: EKG Findings:: EKG performed at 9: 10 sinus rhythm with first-degree block rate of 67 MN 220 QRS 102 QT/QTc 376/391 - EKG Results: EKG: interpreted by FRANCIS Past Medical History Past Medical History: Hyperlipidemia, Hypertension, Sleep Apnea/CPAP/BIPAP Additional Past Medical History / Comment(s): kidney stones, diverticulosis History of Any Multi-Drug Resistant Organisms: None Reported Past Surgical History: Appendectomy, Bowel Resection, Cholecystectomy, Hernia Repair, Orthopedic Surgery Additional Past Surgical History / Comment(s): lithotripsy, colostomy/later reversal, curt great toe surgery, curt knee arthroscopy Past Anesthesia/Blood Transfusion Reactions: No Reported Reaction Past Psychological History: No Psychological Hx Reported Smoking Status: Former smoker - Past Family History Father Family Medical History: Cancer, Deep Vein Thrombosis (DVT) Additional Family Medical History / Comment(s): Prostate Cancer. General Exam Limitations: no limitations Course Vital Signs 10/14/24 10/14/24 10/14/24 09:00 10:00 12:05 Temperature 97.8 F Pulse Rate 69 64 62 Respiratory 18 20 16 Rate Blood Pressure 173/77 143/83 144/81 O2 Sat by Pulse 96 97 96 Oximetry Procedures - [place] Protocol (Time Out) Nurse: Hamilton Graf Chest Pain MDM - MDM Was pt. sent in by a medical professional or institution (, PA, OXYGEN EQUIPMENT PREPARER, urgent care, hospital, or jail...) When possible be specific @ -No Did you speak to anyone other than the patient for history (EMS, parent, family, police, friend...)? What history was obtained from this source @ -No Did you review nursing and triage notes (agree or disagree)? Why? @ -I reviewed and agree with nursing and triage notes Were old charts reviewed (outside hosp., previous admission, EMS record, old EKG, old radiological studies, urgent care reports/EKG's, jail records)? Report findings @ -No old charts were reviewed Differential Diagnosis (chest pain, altered mental status, abdominal pain women, abdominal pain men, vaginal bleeding, weakness, fever, dyspnea, syncope, headache, dizziness, GI bleed, back pain, seizure, CVA, palpatations, mental health, musculoskeletal)? @Differential Chest Pain: Stable Angina, Unstable Angina, STEMI, NSTEMI Aortic Dissection, Pneumothorax, Musculoskeletal, Esophageal Spasm GERD, Cholecystitis, Pancreatitis, Zoster, this is not meant to be an all-inclusive list. EKG interpreted by me (3pts min.). @ -As above X-rays interpreted by me (1pt min.). @ -Chest x-ray shows no acute cardiopulmonary process. CT interpreted by me (1pt min.). @ -CT chest angio shows no evidence of PE, there is changes within the kidney, possible early mass versus cyst. U/S interpreted by me (1pt. min.). @ -None done What testing was considered but not performed or refused? (CT, X-rays, U/S, labs)? Why? @ -None What meds were considered but not given or refused? Why? @ -None Did you discuss the management of the patient with other professionals (professionals i.e. , PA, OXYGEN EQUIPMENT PREPARER, lab, RT, psych nurse, web content & social media manager, anesthesiology resident, teacher, commercial loan collection officer, case folder)? Give summary @ -Dr. Billy for admission Was smoking cessation discussed for >3mins.? @ -No Was critical care preformed (if so, how long)? @ -No Were there social determinants of health that impacted care today? How? (Homelessness, low income, unemployed, alcoholism, drug addiction, transportation, low edu. Level, literacy, decrease access to med. care, fdc, rehab)? @ -No Was there de-escalation of care discussed even if they declined (Discuss DNR or withdrawal of care, Hospice)? DNR status @ -No What co-morbidities impacted this encounter? (DM, HTN, Smoking, COPD, CAD, Cancer, CVA, ARF, Chemo, Hep., AIDS, mental health diagnosis, sleep apnea, morbid obesity)? @ -Hypertension hyperlipidemia diabetes Was patient admitted / discharged? Hospital course, mention meds given and route, prescriptions, significant lab abnormalities, going to OR and other pertinent info. @ -Admitted patient has concerning ACS symptoms initial Trope was negative and CT did not show any evidence of PE. Patient did have some nonspecific findings on CT and updated on these results will need close follow-up. Patient will be admitted for cardiac rule out. Undiagnosed new problem with uncertain prognosis? @ -No Drug Therapy requiring intensive monitoring for toxicity (Heparin, Nitro, Insulin, Cardizem)? @ -No Were any procedures done? @ -No Diagnosis/symptom? @ -Chest pain Acute, or Chronic, or Acute on Chronic? @ -Acute Uncomplicated (without systemic symptoms) or Complicated (systemic symptoms)? @ -[Complicated Side effects of treatment? @ -No Exacerbation, Progression, or Severe Exacerbation? @ -No Poses a threat to life or bodily function? How? (Chest pain, [place], [place], pneumonia, PE, COPD, DKA, ARF, appy, cholecystitis, CVA, Diverticulitis, Homicidal, Suicidal, threat to staff... and all critical care pts) @ -Yes possible ACS causing risk to cardiac function Disposition Clinical Impression: Chest pain Disposition: ADMITTED IP TO THIS HOSP Condition: Fair Referrals: Daniel Billy DO [Primary Care Provider] - 1-2 days Time of Disposition: 13:10
[2024-10-14] MEDS: MAG HYDROX/AL HYDROX/SIMETH 30 ML CUP PO PRN (16:07)
[2024-10-14] MEDS: PANTOPRAZOLE 40 MG/10 ML VIAL IVP STA (16:11)
[2024-10-14 21:12] LABS: Glucose,Whole Blood 155 mg/dL (70-110)
[2024-10-14] MEDS ORDERED: DEXTROSE 50% SYRINGE 50 ML IVP PRN ×2 (21:49)
[2024-10-14] MEDS: LOSARTAN-HCTZ 50-12.5 MG 1 EACH TAB PO SCH (22:22)
[2024-10-14] MEDS: ATORVASTATIN 40 MG TAB PO SCH (22:22)
[2024-10-14] MEDS: LOSARTAN 50 MG TAB PO SCH (22:22)
[2024-10-15 06:20] LABS: Glucose,Whole Blood 159 mg/dL (70-110)
[2024-10-15] MEDS: INSULIN LISPRO (HumaLOG) 100 UNIT/ML 10 mL VL SQ SCH (06:23)
[2024-10-15] MEDS: LEVOTHYROXINE 50 MCG TAB PO SCH (06:33)
[2024-10-15] MEDS: amLODIPine 5 MG TAB PO SCH (08:23)
[2024-10-15] MEDS: FUROSEMIDE 20 MG TAB PO SCH (08:23)
[2024-10-15] MEDS: ASPIRIN 325 MG TAB PO SCH (08:23)
[2024-10-15 08:49] LABS: Chol/HDL Ratio 3.72 Ratio; LDL Cholesterol,Calculated 70.9 mg/dL (0.0-131.0)
--- NOTE | 2024-10-15 11:13 | P.HPIM ---
History of Present Illness H&P Date: 10/15/24 Chief Complaint: Recurrent chest achiness and burning History and Physical and Discharge Summary: This is a 68-year-old gentleman with past medical history significant for recent exercise stress test in June 2024-reported good exercise tolerance/normal electrocardiogram, family history of CAD in his father and brother ,morbid obesity, gastroesophageal reflux disease, increased weight gain since with nonadherence to diabetic diet, sedentary lifestyle, prior nicotine dependence, hypertension, hyperlipidemia, obstructive sleep apnea, wears CPAP, kidney stones/lithotripsy, diverticulosis, multiple abdominal surgeries, bilateral knee surgery, and multiple other medical issues Reported he has been having recurrent nonradiating left chest "achiness" that began on Sunday while sitting down watching TV, lasted 2 hours, spontaneous resolved. Shortly thereafter developed heartburn in his right chest, nonradiating lasting about 10 to 15 minutes. Spontaneously resolved. Denies increased shortness of breath, diaphoresis, lightheadedness- reports she felt he seemed a little dizzy in the recliner as patient had subsequently reclined further back in chair. Denies nausea vomiting diarrhea or abdominal pain. patient does report increased fatigue. Hypertensive on admission, blood pressure 173/77. afebrile, maintaining O2 sats in the mid to high 90s on room air. Troponins negative x 3, EKG reported sinus rhythm. Chest x-ray reported borderline heart size, no acute process seen. Hemoglobin 15.4, platelets 229, D-dimer elevated 0.89. Renal function stable. chest CT reported suboptimal contrast bolus, no large central or definite lobar branch pulmonary embolus many of the segmental and more distal arterial branches are very limited. Prominent LAD coronary artery calcifications. Mild diffuse bronchial wall thickening may be seen with bronchitis or asthma. Some strandy atelectasis or scarring in the lower lungs. Possible some early cortical nodule/mass anterior upper pole right kidney measuring 9 mm. 3 to 6-month follow-up CT recommended to reassess. Small early RCC not excluded at this time. Small hiatal hernia. Glucose ranging in the 150s, hemoglobin A1c 8.2. Reports his blood sugars range anywhere from 130s to 200s at home. Triglycerides 179, cholesterol 146, LDL 70.9, HDL 39.3. Currently denies chest pain, palpitations or shortness of breath, reports mild left chest nonradiating burning. Cardiology consult in place. Review of Systems ROS Statement: Those systems with pertinent positive or pertinent negative responses have been documented in the HPI. ROS Other: All systems not noted in ROS Statement are negative. Past Medical History Past Medical History: Hyperlipidemia, Hypertension, Sleep Apnea/CPAP/BIPAP Additional Past Medical History / Comment(s): kidney stones, diverticulosis History of Any Multi-Drug Resistant Organisms: None Reported Past Surgical History: Appendectomy, Bowel Resection, Cholecystectomy, Hernia Repair, Orthopedic Surgery Additional Past Surgical History / Comment(s): lithotripsy, colostomy/later reversal, curt great toe surgery, curt knee arthroscopy, bilat knee replacement Past Anesthesia/Blood Transfusion Reactions: No Reported Reaction Past Psychological History: No Psychological Hx Reported Smoking Status: Former smoker Past Alcohol Use History: Occasional Additional Past Alcohol Use History / Comment(s): STARTED SMOKING AT AGE 24 QUIT IN 1983, SMOKED 1- 1 1/2 PPD Past Drug Use History: None Reported - Past Family History Father Family Medical History: Cancer, Deep Vein Thrombosis (DVT) Additional Family Medical History / Comment(s): Prostate Cancer. Medications and Allergies Home Medications Medication Instructions Recorded Confirmed Type Levothyroxine Sodium [Euthyrox] 50 mcg PO DAILY 05/16/21 10/14/24 History Losartan/Hydrochlorothiazide 1 tab PO HS 05/16/21 10/14/24 History [Hyzaar 100-12.5 Tablet] Rosuvastatin [Crestor] 20 mg PO HS 05/16/21 10/14/24 History metFORMIN HCL 500 mg PO BID 05/16/21 10/14/24 History amLODIPine [Norvasc] 5 mg PO DAILY 03/13/24 10/14/24 History Furosemide [Lasix] 20 mg PO DAILY 10/14/24 10/14/24 History Nebivolol HCl [Bystolic] 10 mg PO HS 10/14/24 10/14/24 History Pantoprazole Sodium [Protonix] 40 mg PO DAILY #30 tab 10/15/24 Rx Allergies Allergy/AdvReac Type Severity Reaction Status Date / Time No Known Allergies Allergy Verified 10/14/24 10:32 Physical Exam Vitals: Vital Signs Temp Pulse Pulse Resp BP BP Pulse Ox 10/15/24 07:00 97.5 F L 64 16 124/77 92 L 10/15/24 02:00 75 10/15/24 01:58 98.3 F 64 15 138/67 99 10/14/24 20:55 75 10/14/24 20:00 97.7 F 75 16 159/75 96 10/14/24 18:10 97.9 F 79 19 129/74 96 10/14/24 16:00 73 21 121/74 94 L 10/14/24 14:19 59 L 20 125/69 96 10/14/24 12:05 62 16 144/81 96 Intake and Output 10/14/24 10/15/24 10/15/24 22:59 06:59 14:59 Other: Voiding Method Toilet Toilet # Voids 2 3 Weight 120.202 kg PHYSICAL EXAM: VITAL SIGNS: Reviewed GENERAL: Well-nourished, 68-year-old gentleman, sitting up in bed, no acute distress HEENT: Normocephalic, atraumatic, conjunctivae normal. eyes normal. Sclera anicteric. NECK: Supple no JVD. CARDIOVASCULAR: S1, S2 regular. No murmur RESPIRATION: Unlabored, equal air entry breath sounds diminished in the bases. No rhonchi or crackles. No bronchial breathing. ABDOMEN: Soft, obese/distended, nontender . No guarding. no masses palpable. No ascites, No hepatosplenomegaly.Bowel sounds heard. LEGS: No edema. no swelling PSYCHIATRY: Alert and oriented X3, mood and affect normal. NERVOUS SYSTEM: Cranial N 2-12 grossly normal. No focal deficits. Strength and sensation grossly intact. Skin: Warm and dry, no rash Results CBC & Chem 7: 10/14/24 10:02 10/14/24 10:02 Labs: Abnormal Lab Results - Last 24 Hours (Table) 10/14/24 10/14/24 10/14/24 Range/Units 10:02 10:02 10:02 D-Dimer 0.89 H (<0.60) mg/L FEU Glucose 151 H (74-99) mg/dL POC Glucose (mg/dL) (70-110) mg/dL Hemoglobin A1c (<=6.0) % Triglycerides 179.00 H (0.00-149.00) mg/dL HDL Cholesterol 39.30 L (40.00-60.00) mg/dL 10/14/24 10/14/24 10/15/24 Range/Units 10:02 21:11 06:15 D-Dimer (<0.60) mg/L FEU Glucose (74-99) mg/dL POC Glucose (mg/dL) 155 H 159 H (70-110) mg/dL Hemoglobin A1c 8.2 H (<=6.0) % Triglycerides (0.00-149.00) mg/dL HDL Cholesterol (40.00-60.00) mg/dL Thrombosis Risk Factor Assmnt - Choose All That Apply Any of the Below Risk Factors Present?: Yes Each Factor Represents 1 point: Obesity (BMI >25) Other Risk Factors: Yes Each Risk Factor Represents 2 Points: Age 61-74 years Other congenital or acquired thrombophilia - If yes, enter type in comment: No Thrombosis Risk Factor Assessment Total Risk Factor Score: 3 Thrombosis Risk Factor Assessment Level: Moderate Risk Assessment and Plan Assessment: Chest achiness, burning sensation, troponins negative x 3, in a patient with strong family history of CAD. Hypertension Hyperlipidemia Elevated D-dimer, CTA reported no definite pulmonary embolus seen. Morbid obesity, BMI 43 Mediastinal lymph nodes measuring up to 8 cm in the prevascular space, probably reactive/postinflammatory reported per CTA Obstructive sleep apnea, wears CPAP Small hiatal hernia reported per CTA Gastroesophageal reflux Diabetes mellitus II, uncontrolled, hemoglobin A1c 8.2, further diabetic education outpatient in clinic with PCP Possible small early cortical nodule/mass anterior upper pole right kidney measuring 9 mm, follow-up with urology, repeat CT in 3-6 mths. History of renal calculi Diverticulosis Prior nicotine dependence Fatty liver, suspected per imaging Plan: Continue on current medication resume ,monitoring and symptomatic treatment.NPO, Recommend adhering to diabetic diet, daily walking-weight loss, no eating or drinking 2 hours prior to sleep. PPI ordered. Evaluated by cardiology, scheduled for cardiac catheterization today. Patient will be discharged home today in a stable condition with guarded prognosis pending cardiac catheterizations results, final DC recommendations and clearance per cardiology. Discharge Medication List Levothyroxine Sodium [Euthyrox] 50 mcg PO DAILY 05/16/21 [History] Losartan/Hydrochlorothiazide [Hyzaar 100-12.5 Tablet] 1 tab PO HS 05/16/21 [History] Rosuvastatin [Crestor] 20 mg PO HS 05/16/21 [History] metFORMIN HCL 500 mg PO BID 05/16/21 [History] amLODIPine [Norvasc] 5 mg PO DAILY 03/13/24 [History] Furosemide [Lasix] 20 mg PO DAILY 10/14/24 [History] Nebivolol HCl [Bystolic] 10 mg PO HS 10/14/24 [History] Pantoprazole Sodium [Protonix] 40 mg PO DAILY #30 tab 10/15/24 [Rx] the impression and plan of care has been dictated as directed. : I performed a history and examination of this patient, discussed the same with the dictator. I agree with the dictator's note ,documented as a scribe. Any additional findings or plans will be noted.
[2024-10-15] MEDS ORDERED: ALPRAZolam 0.5 MG TAB PO PRN (11:14)
[2024-10-15] MEDS ORDERED: ALPRAZolam 0.25 MG TAB PO PRN (11:14)
[2024-10-15] MEDS ORDERED: NITROGLYCERIN SL TABS 0.4 MG TAB SUBLINGUAL PRN (11:14)
[2024-10-15] MEDS: ASPIRIN 325 MG TAB PO STA (11:34)
[2024-10-15] MEDS: ATORVASTATIN 80 MG TAB PO STA (11:59)
[2024-10-15] MEDS: PANTOPRAZOLE 40 MG/10 ML VIAL IVP SCH (12:00)
[2024-10-15] MEDS: SODIUM CHLORIDE 0.9% 1,000 ML IV SCH (12:00)
[2024-10-15 12:05] LABS: Glucose,Whole Blood 124 mg/dL (70-110)
--- NOTE | 2024-10-15 12:49 | P.CRDCN ---
History of Present Illness Consult date: 10/15/24 Consult reason: chest pain History of present illness: This is a 68-year-old male with no previous cardiac history and denies following with substance abuse therapist. He has a past medical history of hypertension, hyperlipidemia, diabetes, kidney stones. We have been asked to evaluate the patient for chest pain. Patient states that he developed mild chest pain about 4 days ago and initially he thought it was heartburn. By the third day it was moving from the left side to the right side of his chest and it did not go away and then it occurred again on Sunday. He states it comes and goes and the longest that it has lasted is about 1 and half hours. He did try Maalox in the emergency center. He did not try nitroglycerin. He denies lightheadedness or dizziness, no nausea or vomiting, no sweating. He denies shortness of breath. His does state that he had some dizziness with the episodes but he does not remember that. He states he has had weight gain since . He is able to do activities such as he cut the grass with a push mower and did not have any symptoms. He was a smoker and quit smoking 25 years ago. He does have a family history of father dying from a heart attack and brothers with coronary artery disease and stents. He recently underwent an outpatient stress test that was ordered by his PCP that was completed on 06/19/2024. This was an exercise stress test that was normal. He had a previous echocardiogram performed in 2019 with a EF of 60 to 65%. Dr. Chavez discussed recommendations for cardiac ca theterization with the patient and he is agreeable to move forward with this today. Blood pressure 124/77, heart rate 64, pulse ox 92% on room air. -EKG: Sinus rhythm with no acute ST-T wave changes. -Chest x-ray: No acute process. Borderline heart size. -CTA chest revealed suboptimal contrast bolus. No large central or definite lobar branch pulmonary embolus. No definite pulmonary embolus. Prominent LAD coronary artery calcifications. Mild diffuse bronchial wall thickening may be seen with bronchitis or asthma. Possible early cortical nodule or mass on the right kidney. Hiatal hernia. -Laboratory studies: Troponin negative x 3. CBC, INR, electrolytes and renal function unremarkable. Triglycerides 179, cholesterol 146, LDL 70. D-dimer 0.89. -Home cardiac medications: Amlodipine 5 mg daily, Lasix 20 mg daily, losartan hydrochlorothiazide 100-12.5 mg 1 at bedtime, Bystolic 10 mg at bedtime, rosuvastatin 20 mg at bedtime. Review Of Systems: At the time of my exam: CONSTITUTIONAL: Denies fever or chills. HEENT: Denies blurred vision, vision changes, or eye pain. Denies hemoptysis CARDIOVASCULAR: Denies chest pain. Denies orthopnea. Denies PND. Denies palpitations RESPIRATORY: Denies shortness of breath. GASTROINTESTINAL: Denies abdominal pain. Denies nausea or vomiting. HEMATOLOGIC: Denies bleeding disorders. GENITOURINARY: Denies any blood in urine. SKIN: Denies puritis. Denies rash. Physical examination: Gen: This is 68-year-old male in no acute distress. VS: reviewed HEENT: Head is atraumatic, normocephalic. Pupils equal, round. Sclerae is anicteric. NECK: Supple. No JVD. LUNGS: Clear to auscultation. No wheezes or rhonchi. No intercostal retractions. HEART: Regular rate and rhythm. No murmur. ABDOMEN: Soft No tenderness. EXTREMITIES: No pedal edema. No calf tenderness. NEUROLOGICAL: Patient is awake, alert and oriented x3. Assessment: Chest pain acute coronary syndrome ruled out but symptoms concerning for coronary artery disease based on patient's medical history and family history Hypertension Hyperlipidemia Diabetes mellitus type 2 Kidney stones Morbid obesity with BMI of 42 Plan: Resume patient's home cardiac medications Schedule patient for cardiac catheterization today with Dr. Chavez Obtain 2-D echocardiogram and Doppler study to assess cardiac structure and function Further recommendations to follow based upon clinical course Thank you kindly for this consultation. Nurse practitioner note has been reviewed, I agree with documented findings and plan of care. Patient was seen and examined. Past Medical History Past Medical History: Hyperlipidemia, Hypertension, Sleep Apnea/CPAP/BIPAP Additional Past Medical History / Comment(s): kidney stones, diverticulosis History of Any Multi-Drug Resistant Organisms: None Reported Past Surgical History: Appendectomy, Bowel Resection, Cholecystectomy, Hernia R epair, Orthopedic Surgery Additional Past Surgical History / Comment(s): lithotripsy, colostomy/later reversal, curt great toe surgery, curt knee arthroscopy, bilat knee replacement Past Anesthesia/Blood Transfusion Reactions: No Reported Reaction Past Psychological History: No Psychological Hx Reported Smoking Status: Former smoker Past Alcohol Use History: Occasional Additional Past Alcohol Use History / Comment(s): STARTED SMOKING AT AGE 24 QUIT IN 1983, SMOKED 1- 1 1/2 PPD Past Drug Use History: None Reported - Past Family History Father Family Medical History: Cancer, Deep Vein Thrombosis (DVT) Additional Family Medical History / Comment(s): Prostate Cancer. Medications and Allergies Home Medications Medication Instructions Recorded Confirmed Type Levothyroxine Sodium [Euthyrox] 50 mcg PO DAILY 05/16/21 10/14/24 History Losartan/Hydrochlorothiazide 1 tab PO HS 05/16/21 10/14/24 History [Hyzaar 100-12.5 Tablet] Rosuvastatin [Crestor] 20 mg PO HS 05/16/21 10/14/24 History metFORMIN HCL 500 mg PO BID 05/16/21 10/14/24 History amLODIPine [Norvasc] 5 mg PO DAILY 03/13/24 10/14/24 History Furosemide [Lasix] 20 mg PO DAILY 10/14/24 10/14/24 History Nebivolol HCl [Bystolic] 10 mg PO HS 10/14/24 10/14/24 History Pantoprazole Sodium [Protonix] 40 mg PO DAILY #30 tab 10/15/24 Rx Allergies Allergy/AdvReac Type Severity Reaction Status Date / Time No Known Allergies Allergy Verified 10/14/24 10:32 Physical Exam Vitals: Vital Signs Temp Pulse Pulse Resp BP BP Pulse Ox 10/15/24 07:00 97.5 F L 64 16 124/77 92 L 10/15/24 02:00 75 10/15/24 01:58 98.3 F 64 15 138/67 99 10/14/24 20:55 75 10/14/24 20:00 97.7 F 75 16 159/75 96 10/14/24 18:10 97.9 F 79 19 129/74 96 10/14/24 16:00 73 21 121/74 94 L 10/14/24 14:19 59 L 20 125/69 96 Intake and Output 10/14/24 10/15/24 10/15/24 22:59 06:59 14:59 Other: Voiding Method Toilet Toilet # Voids 2 3 Weight 120.202 kg Results 10/14/24 10:02 10/14/24 10:02 Cardiac Enzymes 10/14/24 10/14/24 Range/Units 14:14 17:35 Troponin I <0.012 <0.012 (0.000-0.034) ng/mL Lipids 10/14/24 Range/Units 10:02 Triglycerides 179.00 H (0.00-149.00) mg/dL Cholesterol 146.00 (0.00-200.00) mg/dL HDL Cholesterol 39.30 L (40.00-60.00) mg/dL Cholesterol/HDL Ratio 3.72 Ratio Current Medications Generic Name Dose Route Start Last Admin Trade Name Freq PRN Reason Stop Dose Admin Al Hydroxide/Mg Hydroxide 30 ml 10/14/24 15:58 10/14/24 16:07 Mag Hydrox/Al Hydrox/Simeth 30 Ml Cup PO 30 ml Q4HR PRN Administration GI Upset Alprazolam 0.25 mg 10/15/24 11:14 Alprazolam 0.25 Mg Tab PO Q6HR PRN Mild Anxiety Alprazolam 0.5 mg 10/15/24 11:14 Alprazolam 0.5 Mg Tab PO Q6HR PRN Moderate Anxiety Amlodipine Besylate 5 mg 10/15/24 09:00 10/15/24 08:23 Amlodipine 5 Mg Tab PO 5 mg DAILY IGOR Administration Aspirin 325 mg 10/15/24 09:00 10/15/24 08:23 Aspirin 325 Mg Tab PO 325 mg DAILY IGOR Administration Atorvastatin Calcium 40 mg 10/14/24 22:15 10/14/24 22:22 Atorvastatin 40 Mg Tab PO 40 mg HS IGOR Administration Dextrose/Water 25 ml 10/14/24 21:49 Dextrose 50% Syringe 50 Ml IVP PER PROTOCOL PRN Hypoglycemia Protocol Dextrose/Water 50 ml 10/14/24 21:49 Dextrose 50% Syringe 50 Ml IVP PER PROTOCOL PRN Hypoglycemia Protocol Furosemide 20 mg 10/15/24 09:00 10/15/24 08:23 Furosemide 20 Mg Tab PO 20 mg DAILY IGOR Administration HCTZ/Losartan Potassium 1 each 10/14/24 22:15 10/14/24 22:22 Losartan-Hctz 50-12.5 Mg 1 Each Tab PO 1 each HS IGOR Administration Heparin Sodium (Porcine) 10, 1,001 mls @ 999 mls/hr 10/16/24 07:00 000 unit/ Sodium Chloride IRRIGATION 10/16/24 23:00 ONCE PRN INTRA-OP Heparin Sodium (Porcine) 2,500 250.5 mls @ 250 mls/hr 10/16/24 07:00 unit/ Sodium Chloride IRRIGATION 10/16/24 23:00 ONCE PRN INTRA-OP Sodium Chloride 1,000 mls @ 75 mls/hr 10/15/24 11:15 10/15/24 12:00 Saline 0.9% IV 75 mls/hr .[id number] IGOR Administration Insulin Human Lispro 0 unit 10/15/24 07:30 10/15/24 12:08 Insulin Lispro (Humalog) 100 Unit/Ml 10 Ml Vl SQ Not Given ACHS [facility] Protocol Levothyroxine Sodium 50 mcg 10/15/24 06:30 10/15/24 06:33 Levothyroxine 50 Mcg Tab PO 50 mcg DAILY@0630 IGOR Administration Losartan Potassium 50 mg 10/14/24 22:15 10/14/24 22:22 Losartan 50 Mg Tab PO 50 mg HS IGOR Administration Nebivolol 10 mg 10/15/24 21:00 Nebivolol 5 Mg Tab PO HS IGOR Nitroglycerin 0.4 mg 10/14/24 13:10 Nitroglycerin Sl Tabs 0.4 Mg Tab SUBLINGUAL Q5M PRN Chest Pain Pantoprazole Sodium 40 mg 10/15/24 11:15 10/15/24 12:00 Pantoprazole 40 Mg/10 Ml Vial IVP 40 mg DAILY IGOR Administration Intake and Output 10/14/24 10/15/24 10/15/24 22:59 06:59 14:59 Other: Voiding Method Toilet Toilet # Voids 2 3 Weight 120.202 kg 10/14/24 10:02 10/14/24 10:02
[2024-10-15] MEDS: LIDOCAINE 1% INJ 10MG/ML (20 ML MDV) SQ ONE (16:10)
[2024-10-15] MEDS: VERAPAMIL SYRINGE (5 MG/10 ML) INTRAARTER ONE (16:12)
[2024-10-15] MEDS: MIDAZOLAM 2 MG/2 ML VIAL IVP ONE (16:13)
[2024-10-15] MEDS: fentaNYL (PF) 50 MCG/1 ML VIAL IVP ONE (16:14)
[2024-10-15] MEDS: HEPARIN SODIUM 1,000 UN/ML (10ML VL) IVP ONE (16:15)
[2024-10-15] MEDS: IOPAMIDOL-300 30ML BTL INJ ONE (16:23)
[2024-10-15] MEDS: IV FLUID CONTINUATION 1,000 ML IV ONE (16:29)
[2024-10-15 16:37] LABS: Glucose,Whole Blood 112 mg/dL (70-110)
[2024-10-15 16:46] VITALS: RESP 14; TEMP 98
--- NOTE | 2024-10-15 17:03 | P.CARDCATH ---
Description of Procedure: PROCEDURES PERFORMED: Left heart catheterization, bilateral coronary angiography, ultrasound guided arterial access INDICATION: Chest pain concerning for angina CONSENT:I have discussed the risks, benefits and alternative therapies for the above-mentioned procedure and for both sedation/analgesia as well as necessary blood product administration, if indicated, as they pertain to this patient. The patient has indicated understanding and acceptance of the risks and procedures discussed. PROCEDURE: After the risks, benefits and alternatives of the above mentioned procedure explained in detail with the patient, informed consent was obtained. Patient was taken to the catheterization lab and prepped and draped in usual fashion. Ultrasound guidance was used to assess for arterial access. 1% lidocaine was used to anesthetize the right radial artery. A 6-Prydeinig sheath was placed in the right radial artery using modified Seldinger technique and ultrasound guidance. Left coronary angiography was performed with a 5-Prydeinig JL 3.5 catheter and right coronary angiography was performed with a 5-Prydeinig FR5 catheter in various views. A 5-Prydeinig FR5 catheter was inserted into the left ventricle and pressure measurements were obtained. The right radial sheath was removed and a TR band was placed with hemostasis achieved. The patient tolerated the procedure well. Patient was transported back to the post catheterization holding area in stable condition. Conscious Sedation: Patient was monitored under the direct supervision of myself for conscious sedation using Versed and fentanyl for a total duration of 11 minutes HEMODYNAMICS: Aorta: 144/88 LV: 141/5, LVEDP 14 SELECTIVE CORONARY ARTERIOGRAPHY: LEFT MAIN: The left main is a large caliber vessel which bifurcates into the LAD and circumflex. There is no significant stenosis. LEFT ANTERIOR DESCENDING CORONARY ARTERY: LAD is a large caliber vessel which wraps around to the apex. There is mild mid LAD 20 to 30% stenosis and otherwise normal. LEFT CIRCUMFLEX CORONARY ARTERY: Left circumflex is a moderate caliber vessel without significant stenosis. RIGHT CORONARY ARTERY: The right coronary artery is a large caliber vessel which gives off a PDA and PLV branch and is the dominant vessel. There is no significant stenosis. FINAL IMPRESSION: 1. Relatively normal coronary arteries other than mid LAD 20 to 30% stenosis 2. Normal left sided filling pressures PLAN: 1. Aggressive risk factor modification per most recent ACC/AHA guidelines. 2. Follow-up in the office in 1-2 weeks.
--- NOTE | 2024-10-15 17:26 | CA ---
Transthoracic Echo Report Name: Evelio Bacon Age: 68 Gender: M : 1955 Exam Date: 10/15/2024 16:30 Exam Location: [place] [facility] Ht (in): 66 Wt (lb): 265 Ordering Physician: Tessa Stoddard Attending/Referring Phys: [id number], Arlyn Contract Administrative Assistant Angelica Jung RDCS Procedure CPT: Indications: LVF Cardiac Hx: Technical Quality: Technically difficult study Contrast 1: Definity Total Dose (mL): 2 Contrast 2: Total Dose (mL): MEASUREMENTS (Male / Female) Normal Values 2D ECHO LV Diastolic Diameter PLAX 4.6 cm 4.2 - 5.9 / 3.9 - 5.3 cm LV Systolic Diameter PLAX 3.0 cm IVS Diastolic Thickness 1.5 cm 0.6 - 1.0 / 0.6 - 0.9 cm LVPW Diastolic Thickness 1.6 cm 0.6 - 1.0 / 0.6 - 0.9 cm LV Relative Wall Thickness 0.7 RV Internal Dim ED PLAX 3.8 cm LA Systolic Diameter LX 4.0 cm 3.0 - 4.0 / 2.7 - 3.8 cm M-MODE Aortic Root Diameter MM 3.6 cm AV Cusp Separation MM 2.7 cm DOPPLER AV Peak Velocity 137.2 cm/s AV Peak Gradient 7.5 mmHg MV Area PHT 2.0 cm??? Mitral E Point Velocity 59.6 cm/s Mitral A Point Velocity 90.1 cm/s Mitral E to A Ratio 0.7 MV Deceleration Time 385.8 ms TR Peak Velocity 245.1 cm/s TR Peak Gradient 24.0 mmHg Right Ventricular Systolic Press 28.6 mmHg FINDINGS Left Ventricle Left ventricular ejection fraction is estimated at 60-65 %. Left ventricular cavity size normal. Moderate concentric left ventricular hypertrophy. Normal left ventricular wall motion. Right Ventricle Mild right ventricular dilatation. Right ventricular systolic pressure within normal limits. Right Atrium Right atrium not well visualized. Left Atrium Normal left atrial size. No left atrial thrombus or mass present. Mitral Valve Structurally normal mitral valve. No mitral stenosis, regurgitation or prolapse. Aortic Valve Trileaflet aortic valve. No aortic valve stenosis or regurgitation. Tricuspid Valve Structurally normal tricuspid valve. Trace to mild tricuspid regurgitation. Pulmonic Valve Pulmonic valve not well visualized. Pericardium No pericardial effusion. Aorta Normal size aortic root and proximal ascending aorta. CONCLUSIONS Left ventricular ejection fraction 60 to 65% Moderate increased left ventricular wall thickness RVSP 28 Trace to mild tricuspid regurgitation No pericardial effusion Previewed by: Dr. Addy Chavez DO (Electronically Signed) Final Date: 15 October 2024 17:25
[2024-10-15 20:10] VITALS: BP 123/72; PULSE 61
[2024-10-15] MEDS ORDERED: NEBIVOLOL 5 MG TAB PO SCH (21:00)
[2024-10-16] MEDS ORDERED: HEPARIN SODIUM,PORCINE (1 ML) 2,500 UNIT in SODIUM CHLORIDE 0.9% 250 ML IRRIGATION PRN (07:00)
[2024-10-16] MEDS ORDERED: HEPARIN SODIUM,PORCINE 10,000 UNIT in SODIUM CHLORIDE 0.9% 1,000 ML IRRIGATION PRN (07:00)
== END 2024-10-15 21:03 | disposition home or self-care (01) ==
LOC: EC 08:59 → 6NMEDSUR 12:42
PROVIDERS: ADMIT Family Medicine; ATTEND Family Medicine
DX: R07.89 Other chest pain (principal); E11.65 Type 2 diabetes mellitus with hyperglycemia; I25.10 Atherosclerotic heart disease of native coronary artery without angina pectoris; I10 Essential (primary) hypertension; E78.5 Hyperlipidemia, unspecified; K21.9 Gastro-esophageal reflux disease without esophagitis; G47.33 Obstructive sleep apnea (adult) (pediatric); K57.32 Diverticulitis of large intestine without perforation or abscess without bleeding; R79.89 Other specified abnormal findings of blood chemistry; K44.9 Diaphragmatic hernia without obstruction or gangrene; K76.0 Fatty (change of) liver, not elsewhere classified; N20.0 Calculus of kidney; E66.01 Morbid (severe) obesity due to excess calories; Z68.41 Body mass index [BMI] 40.0-44.9, adult; Z91.119 Patient's noncompliance with dietary regimen due to unspecified reason; Z79.890 Hormone replacement therapy; Z79.84 Long term (current) use of oral hypoglycemic drugs; Z79.899 Other long term (current) drug therapy; Z87.891 Personal history of nicotine dependence; Z87.442 Personal history of urinary calculi; Z98.890 Other specified postprocedural states; Z82.49 Family history of ischemic heart disease and other diseases of the circulatory system
CPT/HCPCS: 96376; 96374; 96375; 99285; 36415; 93005; 93458; 85379; 83880; 80061; 80053; 83735; 84484; 85025; 85610; 85730; 83036; 71046; 71275; G0378 ×2; C8929; C1894; J2250; J2405; J2003; Q9957; J1644; Q9967; J3010; J2470 ×2; 93306

== ENCOUNTER → 2024-12-02 | Outpatient (CLI) | payer MEDICARE, OTHER ==
[2024-12-02 15:00] LABS: HCT 43.8 % (39.6-50.0); HGB 13.8 g/dL (13.0-17.0); MCHC 31.5 g/dL (32.0-37.0); Platelet Count 227 X 10*3/uL (140-440); RBC 4.76 X 10*6/uL (4.40-5.60); WBC 7.17 X 10*3/uL (4.50-10.00)
[2024-12-02 15:01] LABS: Basophils # (A) 0.06 X 10*3/uL (0.00-0.10); Basophils % (A) 0.8 %; Eosinophils # (A) 0.17 X 10*3/uL (0.04-0.35); Eosinophils % (A) 2.4 %; Lymphocytes # (A) 1.37 X 10*3/uL (0.90-5.00); Lymphocytes % (A) 19.1 %; Monocytes # (A) 0.65 X 10*3/uL (0.20-1.00); Monocytes % (A) 9.1 %; NRBC Per 100 WBC 0 X 10*3/uL (0.00-0.01); Neutrophils # (A) 4.83 X 10*3/uL (1.80-7.70); Neutrophils % (A) 67.3 %
[2024-12-02 15:09] LABS: Appearance,Urine Clear (Clear); Bilirubin,Urine Negative (Negative); Blood,Urine Trace (Negative); Color,Urine Yellow (Yellow); Ketones,Urine Negative (Negative); Nitrite,Urine Negative (Negative); PH, Urine 6.5; Specific Gravity,Urine 1.009 (1.001-1.030); Urobilinogen,Urine 0.2 E.U./DL
[2024-12-02 15:18] LABS: Bacteria,Urine 3+ (None Seen)
[2024-12-02 15:20] LABS: Blood Urea Nitrogen 15.5 mg/dL (9.0-27.0); Calcium 9.2 mg/dL (8.7-10.3); Carbon Dioxide 27.4 mmol/L (21.6-31.8); Chloride 102 mmol/L (96-109); Glucose 163 mg/dL (70-110); Sodium 142 mmol/L (135-145)
== END | disposition home or self-care (01) ==
LOC: LABPAT 08:44
PROVIDERS: ATTEND Urology
DX: Z01.812 Encounter for preprocedural laboratory examination (principal); N20.0 Calculus of kidney
CPT/HCPCS: 36415; 80048; 81001; 85025; 87086

== ENCOUNTER 2024-12-10 05:51 | Day surgery (SDC) | payer MEDICARE, OTHER ==
[2024-12-05 15:03] VITALS: BMI 42.7
--- NOTE | 2024-12-09 18:37 | P.GSHP ---
History of Present Illness H&P Date: 12/09/24 Pelvic stone each about 1 cm as well as 2 left lower pole stones. Because of the size of the stone location as well as a right sided flank pain he comes for right ureteroscopy and laser lithotripsy. We discussed percutaneous nephrostolithotomy which he declined. 68-year-old gentleman with a history of kidney stones. He has been having right flank pain. KUB identified a right lower pole calyceal stone and a right renal - Constitutional Constitutional: Denies chills, Denies fever - EENT Eyes: denies blurred vision, denies pain Ears, nose, mouth and throat: Denies headache, Denies sore throat - Cardiovascular Cardiovascular: Denies chest pain, Denies shortness of breath - Respiratory Respiratory: Denies cough, Denies 7 - Gastrointestinal Gastrointestinal: Denies abdominal pain, Denies diarrhea, Denies nausea, Denies vomiting - Genitourinary (Female) Genitourinary: Denies dysuria, Denies hematuria - Genitourinary (Male) Genitourinary: Denies dysuria, Denies hematuria - Musculoskeletal Musculoskeletal: Denies myalgias - Integumentary Integumentary: Denies pruritus, Denies rash - Neurological Neurological: Denies numbness, Denies weakness - Psychiatric Psychiatric: Denies anxiety, Denies depression - Endocrine Endocrine: Denies fatigue, Denies weight change Past Medical History Past Medical History: Diabetes Mellitus, GERD/Reflux, Hearing Disorder / Deafness, Hyperlipidemia, Hypertension, Skin Disorder, Sleep Apnea/CPAP/BIPAP, Thyroid Disorder Additional Past Medical History / Comment(s): kidney stones, diverticulosis, UTI, Does use CPAP. Arthritis. Type II diabetic. "Periodically I get sores on my legs because of my diabetes."-scab to rt leg wound currently- "From a blister that popped because of diabetes.". Kidney stones-"numerous". History of Any Multi-Drug Resistant Organisms: None Reported Past Surgical History: Appendectomy, Bowel Resection, Cholecystectomy, Hernia Repair, Orthopedic Surgery Additional Past Surgical History / Comment(s): lithotripsy, curt great toe surgery, curt knee arthroscopy, bilat knee replacement , Colonoscopy. Past Anesthesia/Blood Transfusion Reactions: No Reported Reaction Additional Past Anesthesia/Blood Transfusion Reaction / Comment(s): No blood tra nsfusion to date. Smoking Status: Former smoker - Past Family History Father Family Medical History: Cancer, Deep Vein Thrombosis (DVT) Additional Family Medical History / Comment(s): Prostate Cancer. Brother(s) Family Medical History: Cancer Additional Family Medical History / Comment(s): Skin cancer Medications and Allergies Home Medications Medication Instructions Recorded Confirmed Type Levothyroxine Sodium [Euthyrox] 50 mcg PO DAILY 05/16/21 12/05/24 History Losartan/Hydrochlorothiazide 1 tab PO HS 05/16/21 12/05/24 History [Hyzaar 100-12.5 Tablet] Rosuvastatin [Crestor] 20 mg PO HS 05/16/21 12/05/24 History metFORMIN HCL 500 mg PO BID 05/16/21 11/13/24 History Furosemide [Lasix] 20 mg PO QAM 10/14/24 12/05/24 History Nebivolol HCl [Bystolic] 10 mg PO HS 10/14/24 12/05/24 History Pantoprazole Sodium 40 mg PO QAM 12/05/24 12/05/24 History Sulfamethoxazole-Tmp 1 dose PO QAM 12/05/24 12/05/24 History Tylenol (Unknown Dose) 1 dose PO DIRECTED PRN 12/05/24 12/05/24 History amLODIPine BESYLATE 5 mg PO QAM 12/05/24 12/05/24 History Allergies Allergy/AdvReac Type Severity Reaction Status Date / Time No Known Allergies Allergy Verified 12/05/24 14:36 Surgical - Exam - General well developed, well nourished, no distress - Eyes normal ocular movement, no icteric - ENT no hearing loss, no congestion - Neck no masses, trachea midline - Respiratory normal respiratory effort, clear to auscultation - Abdomen Abdomen: soft, non tender, no guarding, no rigid, no rebound - Integumentary no rash, no abnormal pigmentation - Neurologic no disoriented, no combative - Psychiatric oriented to time, oriented to person, oriented to place, speech is normal, memory intact Results - Imaging Abdominal x-ray: report reviewed, image reviewed CT scan - abdomen: report reviewed, image reviewed CT scan - pelvis: report reviewed, image reviewed Assessment and Plan Assessment: Impression: Right renal calculi with obstruction and pain Injections: Right ureteroscopy laser lithotripsy
[2024-12-10] MEDS: IV FLUID CONTINUATION 1,000 ML IV ONE (06:44)
[2024-12-10 06:56] LABS: Glucose,Whole Blood 122 mg/dL (70-110)
[2024-12-10] MEDS ORDERED: MIDAZOLAM 2 MG/2 ML VIAL IV PRN (07:00)
[2024-12-10] MEDS: ONDANSETRON 4 MG/2 ML VIAL IVP ONE (07:00)
[2024-12-10] MEDS: DEXAMETHASONE SOD PHOSPHATE 4 MG/ML 1 ML VIAL IV ONE (07:00)
[2024-12-10] MEDS: LACTATED RINGERS 1,000 ML IV SCH (07:00)
[2024-12-10] MEDS ORDERED: HYDROmorphone 0.5 MG/0.5 ML SYRINGE IVP PRN (07:00)
[2024-12-10] MEDS ORDERED: LIDOCAINE 1% INJ 10MG/ML (20 ML MDV) ONE (07:26)
[2024-12-10] MEDS ORDERED: SUCCINYLCHOLINE CHLORIDE 200 MG/10 ML VIAL IV ONE (07:26)
[2024-12-10] MEDS ORDERED: fentaNYL (PF) 50 MCG/ML 2 ML AMP ONE (07:26)
[2024-12-10] MEDS ORDERED: MIDAZOLAM 2 MG/2 ML VIAL ONE (07:26)
[2024-12-10] MEDS ORDERED: PROPOFOL 10 MG/ML 20 ML VIAL IV ONE (07:26)
[2024-12-10] MEDS: ceFAZolin 3 GM in SODIUM CHLORIDE 0.9% 100 ML IVPB PRN (07:30)
--- NOTE | 2024-12-10 07:48 | XR ---
EXAMINATION TYPE: XR KUB DATE OF EXAM: 12/10/2024 6:17 AM COMPARISON: 11/18/2024 CLINICAL INDICATION: Male, 68 years old with history of Right Renal Stone N20.0; PHH, pain. Scheduled for surgery today. TECHNIQUE: One radiographic view of the abdomen was obtained. FINDINGS: Lung bases are clear. Cholecystectomy clips. Bilateral renal calculi measuring up to 1.3 cm on the left and 9 mm on the rig ht. Mild overall stool burden. Nonobstructive bowel gas pattern. Right-sided pelvic phleboliths. IMPRESSION: Bilateral nephrolithiasis measuring up to 1.3 cm on the left and 9 mm on the right. [facility], Workstation: [email or web address], 12/10/2024 7:46 AM
[2024-12-10] MEDS: IOPAMIDOL-370 100ML BTL MISCELLANE ONE (07:57)
--- NOTE | 2024-12-10 08:25 | P.OP ---
Date of Procedure: 12/10/24 Preoperative Diagnosis: Right renal stones Postoperative Diagnosis: Right renal tubular stones Procedure(s) Performed: Cystoscopy, right ureteroscopy with intraoperative nephrostogram Anesthesia: ABBY Surgeon: Supa Jackson Estimated Blood Loss (ml): 0 Pathology: none sent Condition: stable Disposition: PACU Indications for Procedure: 68. He recently was in the office and had a 9 mm renal pelvic stone plus calyceal stones. Pain and wishes stones to be removed. We have chosen ureteroscopy. The KUB preoperatively shows the renal pelvic stone appears to be gone but there are still the calyceal stones. Description of Procedure: Patient brought to the operating suite. Given a general anesthesia. Prepped and draped sterilely. Cystoscopy Foroblique lens and 21 Mold[place] sheath is normal. The right ureteral orifice is intubated with an 035 wire. Over the wire is passed 11-13 Moldovan reentry sheath. The inner sheath is removed and I passed the flexible ureteroscope into the collecting system. I moved to the stone in the midpole calyx and a flexible ureteroscope. I looked throughout the complex collecting system in the middle pole calyx and do not see a stone. Then look throughout the rest of the collecting system and see no obvious stone. I did do an intraoperative nephrostogram with Isovue contrast and make sure I have entered each calyx independently. I repeat the intraoperative ureteroscopy and see no evidence of stones whatsoever. I suspect he passed the renal pelvic stone and the other stones are renal tubular stones and accessible to ureteroscopy. Pullout ureteroscopy was negative. The bladder was drained the patient is awakened returned recovery in good condition. He Toller procedure well be discharged home upon recovery Impression renal pelvic stone passed. Right renal tubular stones. Recommendation the patient will follow in the office.
[2024-12-10 08:30] VITALS: TEMP 97.9
--- NOTE | 2024-12-10 09:14 | FL ---
Fluoroscopy INDICATION: Pain FINDINGS: Fluoroscopy time: 2 minutes 33 seconds. Total dose area product (DAP) in uGy*m?, mGy*cm? (or similar): 90.29 Images obtained: 5. Images document the procedure. IMPRESSION: 1. Documentation of fluoroscopy. [facility], , 12/10/2024 9:12 AM
[2024-12-10 09:34] VITALS: BP 119/71; PULSE 78; RESP 18
== END 2024-12-10 09:54 | disposition home or self-care (01) ==
LOC: OR 05:51
PROVIDERS: ATTEND Urology
DX: N20.0 Calculus of kidney (principal); I10 Essential (primary) hypertension; E11.9 Type 2 diabetes mellitus without complications; E78.5 Hyperlipidemia, unspecified; E66.9 Obesity, unspecified; E07.9 Disorder of thyroid, unspecified; G47.33 Obstructive sleep apnea (adult) (pediatric); M19.90 Unspecified osteoarthritis, unspecified site; Z68.41 Body mass index [BMI] 40.0-44.9, adult; Z87.440 Personal history of urinary (tract) infections; Z90.49 Acquired absence of other specified parts of digestive tract; Z98.890 Other specified postprocedural states; Z96.653 Presence of artificial knee joint, bilateral; Z87.891 Personal history of nicotine dependence; Z79.890 Hormone replacement therapy; Z79.84 Long term (current) use of oral hypoglycemic drugs; Z79.899 Other long term (current) drug therapy
CPT/HCPCS: 52351; 74420; 74018; C1769; J2250; J0330; J1100; J0690; J2405; J2003; J3010; J2704; Q9967